=== PATIENT | male | born 1955 | race Caucasian/White ===

== ENCOUNTER 2019-06-22 11:53 | Emergency (ER) | payer MEDICARE, SELFPAY ==
--- NOTE | ~2019-06-22 | CT_ITS ---
EXAMINATION: CT brain wo con EXAM DATE: 06/22/2019 14:36 INDICATION: Fell off ladder today 2 days ago, head injury. TECHNIQUE: Spiral CT of the head was performed without contrast. Axial, coronal and sagittal images were reviewed. The dose-length product (DLP) for this examination was 529.67 mGy-cm. The exposure w as tailored according to patient size, and iterative reconstruction (ASIR) was used as additional dos e reduction technique. There is no prior study for comparison. FINDINGS: There is no acute intraparenchymal hemorrhage. No evidence of intraparenchymal brain mass lesion. No evidence of acute infarction. There is no mass effect or midline shift. The ventricles are normal in size. There are no extra-axial collections. There are no acute calvarial fractures. T he orbits are unremarkable. Soft tissue is unremarkable. The visualized sinuses and mastoid air perla ls are well aerated. IMPRESSION: 1. No acute intracranial findings. Reviewed, dictated and finalized at location A.
--- NOTE | ~2019-06-22 | CT_ITS ---
EXAMINATION: CT cervical spine wo con EXAM DATE: 06/22/2019 14:35 INDICATION: Head injury. TECHNIQUE: Spiral CT of the cervical spine was performed without contrast. Axial images were reviewe d. Coronal and sagittal reformatted images were also reviewed. The dose-length product (DLP) for thi s examination was 609.65 mGy-cm. The exposure was tailored according to patient size (auto mA exposu re control), and iterative reconstruction (ASIR) was used as additional dose reduction technique. Th ere is no prior study for comparison. FINDINGS: Moderate midcervical disc disease and arthropathy. There is no evidence of acute cervical f racture. The odontoid process is intact. Pre-dens space is normal. Prevertebral soft tissue is nor mal. There are no soft tissue abnormalities identified. There is no disc space widening or traumati c vertebral body subluxation suspected. A detailed level by level evaluation of spondylosis can be added as addendum if requested. IMPRESSION: 1. No acute cervical fracture. 2. Moderate cervical spondylosis. Reviewed, dictated and finalized at location B.
--- NOTE | ~2019-06-22 | CT_ITS ---
EXAMINATION: CT pelvis wo con DATE: 06/22/2019 14:35 INDICATION: Pelvis injury. TECHNIQUE: Computed tomography (CT) of the pelvis was performed without intravenous contrast. Automat ed exposure control and iterative reconstruction technique were employed. The dose-length product was 867.30 mGy-cm. COMPARISON: CT pelvis 10/01/2017 FINDINGS: There is a small umbilical hernia containing fat. The prostate is mildly enlarged. There is diverticulosis of the colon without evidence of diverticulitis. There are no dilated loops of bowel. There are no pathologically enlarged lymph nodes. There is no free intraperitoneal fluid. There is a small left inguinal hernia containing fat. Bone alignment is normal. No fracture. There is severe lo wer lumbar spondylosis. There is moderate osteoarthritis of the hips. IMPRESSION: 1. No fracture. 2. Moderate osteoarthritis of the hips. Reviewed, dictated and finalized at location A.
[2019-06-22 13:47] VITALS: BP 138/83; PULSE 71; RESP 16; TEMP 36.5; O2SAT 99
--- NOTE | 2019-06-22 14:05 | ECG_ITS ---
Measurements Intervals [place] Rate: 68 P: 70 MD: 185 QRS: -1 QRSD: 100 T: 42 QT: 376 QTc: 401 Interpretive Statements SINUS RHYTHM NORMAL ECG Electronically Signed On 06-22-2019 14:56:43 CDT by Partha Brown D.O.
--- NOTE | 2019-06-22 14:12 | PC.NURSE ---
report given to on-coming AMANDA soria.
--- NOTE | 2019-06-22 14:12 | ED.FALL ---
HPI - Fall General Chief Complaint: Fall Stated Complaint: fell off ladder 2 days ago Source: patient Mode of arrival: ambulatory Limitations: no limitations History of Present Illness HPI Narrative: This 64-year-old gentleman comes in with hx of 2 separate incidence of falling. He complains of left low back pain /hip pain as well as neck pain Two days ago Bin was on a latter, about 6 ft off the ground. He lost his balance and fell hitting his left lower back and hip region. Since then his pain has been sharp, #7/10 at rest, #10/10 with walking. He has been able to ambulate but his pain has been getting progressively worse. Yesterday Bin was at a store counter. The next thing he knew was waking up on the floor. He had fallen forward hitting the right forehead. He states he felt somewhat foggy headed for about an hours so afterwards which cleared up. He has had no headache. He denied pain in the head or elsewhere following this incident, although this morning he started having pain in his lower neck made worse at endpoints of neck ROM. He denies numbness tingling or weakness in his arms. He has a seizure disorder; has not had his Dilantin level checked in a long time. He loses consciousness but has never fallen. He has been planning on seeing his neurologist this month. His last seizure was about 2 years ago. With those episodes he states he wakes up, has amnesia of the episode but is clear headed with no post-ictal symtoms. He saw Dr. Velez 3 or 4 weeks ago. He was feeling his heart miss a beat. He was told his EKG was of no concern. He does not know what blood tests were done. He has a history of CVA x3 which has left him weak on 1 side; he ambulates with a cane. He has coronary artery disease status post stent placement x2 Related Data Home Medications Medication Instructions Recorded Confirmed amitriptyline 100 mg tablet 100 mg PO ONCE 03/30/19 06/22/19 clopidogrel 75 mg tablet 75 mg PO DAILY 03/30/19 06/22/19 aspirin 81 mg tablet,delayed 81 mg PO DAILY 05/04/19 06/22/19 release escitalopram oxalate 10 mg tablet 10 mg PO DAILY 05/04/19 06/22/19 gabapentin 300 mg capsule 900 mg PO TID cap 05/04/19 06/22/19 isosorbide dinitrate 20 mg tablet 20 mg PO ONCE tablet 05/04/19 06/22/19 lisinopril 20 1 tablet PO BID 05/04/19 06/22/19 mg-hydrochlorothiazide 25 mg tablet metoprolol tartrate 50 mg tablet 50 mg PO Q12H 05/04/19 06/22/19 nitroglycerin 0.4 mg sublingual 0.4 mg SUBLINGUAL Q5M PRN 05/04/19 06/22/19 tablet omeprazole 40 mg capsule,delayed 40 mg PO DAILY 05/04/19 06/22/19 release phenytoin sodium extended 100 mg 300 mg PO HS 05/04/19 06/22/19 capsule rosuvastatin 20 mg tablet 20 mg PO DAILY 05/04/19 06/22/19 Allergies Allergy/AdvReac Type Severity Reaction Status Date / Time acetaminophen [Vicodin] Allergy Intermediate Rash Verified 05/04/19 08:04 baclofen Allergy Intermediate Anaphylaxis Verified 05/04/19 08:04 hydrocodone [Vicodin] Allergy Intermediate Rash Verified 05/04/19 08:04 Review of Systems Constitutional: Constitutional: Reports no additional constitutional complaints, Denies chills and Denies fever(s) Eyes: Eyes: Denies change in vision ENT: Denies epistaxis and Denies sore throat Cardiovascular: Cardiovascular: Denies chest pain Respiratory: Respiratory: Denies dyspnea Comments: no recent palpitations or feelings of an irregular heart beat. Gastrointestinal: Gastrointestinal: Denies abdominal pain, Denies diarrhea and Denies vomiting Genitourinary: Genitourinary: Denies dysuria Musculoskeletal: Musculoskeletal: Reports no additional musculoskeletal complaints and Denies joint swelling Integumentary/Breasts: Comments: abrasions on forehead . Neurologic: Reports system reviewed and no additional complaints, except as documented, Denies vertigo and Denies dizziness Endocrine: Endocrine: Denies polydipsia Hematologic/Lymphatic: Hematologic/Lymphatic: Denies easy bleeding
--- NOTE | 2019-06-22 14:20 | PC.NURSE ---
Report rcvd, care assumed of pt at this time.
[2019-06-22 14:25] LABS: Hematocrit 32.1 % (40.0-54.0); Hemoglobin 11.5 g/dL (14.0-18.0); Mean Corpuscular HGB Conc 35.8 g/dL (32.0-36.0); Mean Corpuscular Hemoglobin 31.3 pg (27.0-31.0); Mean Corpuscular Volume 87.5 fL (78.0-102.0); Mean Platelet Volume 10.4 fl (8.7-11.0); Platelet Count Result 191 K/mm3 (150-420); Red Blood Count 3.67 M/mm3 (4.70-6.10); Red Cell Distribution Width 13.3 % (11.6-14.4); White Blood Count 7.5 K/mm3 (4.8-10.8)
[2019-06-22 14:40] LABS: Alanine Aminotransferase 30 U/L (16-63); Albumin Level 3.8 g/dL (3.4-5.0); Alkaline Phosphatase 195 U/L (46-116); Anion Gap 12.7 mmol/L (7-16); Aspartate Amino Transferase 12 U/L (15-37); Bilirubin,Total 0.2 mg/dL (0.00-1.00); Blood Urea Nitrogen 29 mg/dL (7-18); Calcium 8.7 mg/dL (8.5-10.1); Carbon Dioxide 26 mmol/L (21-32); Chloride 103 mmol/L (98-108); Estimated CRCL calculation 45 ml/min; Estimated Glomerular Filt Rate 39; Glucose 103 mg/dL (70-99); Osmolality Calculated 289 mOsm/kg (285-295); Potassium 4.7 mmol/L (3.5-5.1); Sodium 137 mmol/L (136-145); Total Protein 6.8 g/dL (6.4-8.2)
[2019-06-22 14:41] LABS: Phenytoin Dilantin 7 ug/mL (10-20)
--- NOTE | 2019-06-22 16:00 | PC.NURSE ---
Pt aware of need for urine specimen.
--- NOTE | 2019-06-22 16:07 | PC.NURSE ---
Dr Edmond at bedside talking with pt and .
[2019-06-22 16:14] VITALS: BP 147/73; PULSE 67; RESP 18; O2SAT 97
[2019-06-22 16:44] LABS: Add Urine Microscopic? NO; Appearance Urine Clear (Clear); Bilirubin Urine Negative (Negative); Blood Urine Negative (Negative); Color Urine Yellow (Yellow); Glucose Urine UA Negative (Negative); Ketones Urine Negative (Negative); Leukocyte Esterase Ur Negative (Negative); Nitrate Urine Negative (Negative); Protein Urine Negative (Negative); Specific Grav Ur 1.015 (1.010-1.020); Urobilinogen Urine 0.2 mg/dL (0.2-1.0); pH Urine 5.5 (5.0-8.0)
[2019-06-22 17:05] VITALS: RESP 20
== END 2019-06-22 17:07 | disposition home or self-care (01) ==
PROVIDERS: Emergency Provider Family Medicine; PCP Family Medicine
DX: R55 Syncope and collapse (principal); S00.93XA Contusion of unspecified part of head, initial encounter; S16.1XXA Strain of muscle, fascia and tendon at neck level, initial encounter; S70.02XA Contusion of left hip, initial encounter; N17.9 Acute kidney failure, unspecified; N18.9 Chronic kidney disease, unspecified; I25.10 Atherosclerotic heart disease of native coronary artery without angina pectoris; Z86.73 Personal history of transient ischemic attack (TIA), and cerebral infarction without residual deficits; W19.XXXA Unspecified fall, initial encounter
CPT/HCPCS: 36415; 70450; 72125; 72192; 80053; 80185; 81003; 85027; 93005; 99283; 99284

== ENCOUNTER 2019-06-28 10:47 | Outpatient (CLI) | payer MEDICARE, SELFPAY ==
[2019-06-28 11:07] LABS: Basophils Absolute Auto 0.04 K/mm3 (0.00-0.10); Basophils Percent Auto 0.7 % (0.0-1.0); Eosinophils Absolute Auto 0.42 K/mm3 (0.02-0.50); Eosinophils Percent Auto 7.6 % (1.0-6.0); Hematocrit 33.4 % (40.0-54.0); Hemoglobin 11.3 g/dL (14.0-18.0); Immature Granulocyte Absolute 0.03 K/mm3 (0.00-0.00); Immature Granulocyte Percent A 0.5 % (0.0-0.0); Lymphocytes Absolute Auto 1.35 K/mm3 (1.10-4.50); Lymphocytes Percent Auto 24.5 % (18.0-42.0); Mean Corpuscular HGB Conc 33.8 g/dL (32.0-36.0); Mean Corpuscular Volume 91.8 fL (78.0-102.0); Monocytes Absolute Auto 0.36 K/mm3 (0.10-0.90); Monocytes Percent Auto 6.5 % (2.0-11.0); Neutrophils Absolute Auto 3.3 K/mm3 (1.7-7.2); Neutrophils Percent Auto 60.2 % (50.0-70.0); Platelet Count Result 172 K/mm3 (150-420); Red Blood Count 3.64 M/mm3 (4.70-6.10); Red Cell Distribution Width 13.9 % (11.6-14.4); White Blood Count 5.5 K/mm3 (4.8-10.8)
[2019-06-28 12:24] LABS: BNP 101 pg/mL (0-100)
[2019-06-28 12:30] LABS: Anion Gap 9.7 mmol/L (7-16); Blood Urea Nitrogen 23 mg/dL (7-18); Calcium 9.2 mg/dL (8.5-10.1); Carbon Dioxide 31 mmol/L (21-32); Chloride 106 mmol/L (98-108); Estimated Glomerular Filt Rate 57; Glucose 101 mg/dL (70-99); Iron 94 ug/dL (65-175); Osmolality Calculated 297 mOsm/kg (285-295); Percent Iron Saturation 30 % (12-57); Phenytoin Dilantin 13 ug/mL (10-20); Potassium 4.7 mmol/L (3.5-5.1); Sodium 142 mmol/L (136-145); Thyroid Stimulating Hormone 0.98 uIU/mL (0.36-3.74)
== END 2019-06-28 10:48 | disposition home or self-care (01) ==
LOC: CHSLAB 10:51
PROVIDERS: PCP Family Medicine; Visit Provider Family Medicine
DX: R55 Syncope and collapse (principal); I25.10 Atherosclerotic heart disease of native coronary artery without angina pectoris; D64.9 Anemia, unspecified; G40.909 Epilepsy, unspecified, not intractable, without status epilepticus; F32.9 Major depressive disorder, single episode, unspecified
CPT/HCPCS: 36415; 80048; 80185; 83540; 83550; 83880; 84443; 85025

== ENCOUNTER 2019-11-15 09:40 | Outpatient (CLI) | payer MEDICARE, SELFPAY ==
[2019-11-17 22:27] LABS: H pylori, Urea Breath NOT DETECTED (NOT DETECTED)
== END 2019-11-15 09:41 | disposition home or self-care (01) ==
LOC: CHSLAB 09:42
PROVIDERS: PCP Family Medicine; Visit Provider Family Medicine
DX: K21.9 Gastro-esophageal reflux disease without esophagitis (principal)
CPT/HCPCS: 83013

== ENCOUNTER 2019-11-23 16:28 | Outpatient (CLI) | payer MEDICARE, SELFPAY ==
[2019-11-23 16:42] LABS: Hemoglobin 13.9 g/dL (14.0-18.0); Mean Corpuscular HGB Conc 33.1 g/dL (32.0-36.0); Mean Corpuscular Hemoglobin 29.1 pg (27.0-31.0); Mean Corpuscular Volume 87.9 fL (78.0-102.0); Mean Platelet Volume 10.7 fl (8.7-11.0); Platelet Count Result 245 K/mm3 (150-420); Red Blood Count 4.78 M/mm3 (4.70-6.10); Red Cell Distribution Width 13.3 % (11.6-14.4); White Blood Count 7.8 K/mm3 (4.8-10.8)
[2019-11-23 17:56] LABS: Alanine Aminotransferase 32 U/L (16-63); Albumin Level 3.9 g/dL (3.4-5.0); Alkaline Phosphatase 154 U/L (46-116); Anion Gap 9 mmol/L (8-16); Aspartate Amino Transferase 25 U/L (15-37); Bilirubin,Total 0.3 mg/dL (0.00-1.00); Blood Urea Nitrogen 21 mg/dL (7-18); Calcium 9.5 mg/dL (8.5-10.1); Carbon Dioxide 29 mmol/L (21-32); Chloride 103 mmol/L (98-108); Estimated Glomerular Filt Rate 56; Glucose 92 mg/dL (70-99); Osmolality Calculated 295 mOsm/kg (285-295); Potassium 3.9 mmol/L (3.5-5.1); Prostate Specific Antigen 2.5 ng/mL (< OR = 4.0); Sodium 141 mmol/L (136-145); Total Protein 7.2 g/dL (6.4-8.2)
[2019-11-28 08:55] LABS: TB Skin Test Interpretation Unable to Read (Negative); TB Skin Test Site Left Arm
== END 2019-11-23 16:29 | disposition home or self-care (01) ==
LOC: CHSLAB 16:31
PROVIDERS: PCP Family Medicine; Visit Provider Family Medicine
DX: R63.4 Abnormal weight loss (principal); R25.2 Cramp and spasm; Z12.5 Encounter for screening for malignant neoplasm of prostate
CPT/HCPCS: 36415; 80053; 84153; 85027; 86580; G0103

== ENCOUNTER 2019-12-12 13:59 | Outpatient (CLI) | payer MEDICARE, SELFPAY ==
[2019-12-12] MEDS: SODIUM CHLORIDE 0.9% IV 1,000 ML 500 ML IVPB (15:28)
[2019-12-12] MEDS: PROCHLORPERAZINE EDISYLATE 10 MG/2 ML VIAL IV PUSH (15:28)
[2019-12-12] MEDS: diphenhydrAMINE HCl INJ 50 MG/ML VIAL IV PUSH (15:28)
== END 2019-12-12 14:00 | disposition home or self-care (01) ==
LOC: CHSTREATRM 14:01
PROVIDERS: PCP Family Medicine; Visit Provider Family Medicine
DX: R51 Headache (principal)
CPT/HCPCS: 96360; 96361; J0780; J1200; J7030

== ENCOUNTER 2019-12-13 08:39 | Outpatient (CLI) | payer MEDICARE, SELFPAY ==
--- NOTE | ~2019-12-13 | CT_ITS ---
EXAMINATION: CT lung screening DATE: 12/13/2019 09:02 INDICATION: History of secondhand smoke exposure TECHNIQUE: Computed tomography (CT) of the chest was performed without intravenous contrast. The dose -length product (DLP) was 275.93 mGy-cm. Automated exposure control and iterative reconstruction tech [employer] were employed. COMPARISON: 04/19/2014 FINDINGS: Calcified pulmonary nodules and calcified left hilar lymph nodes are consistent with old gr anulomatous disease. There is a 5 mm nodule of the right middle lobe in association with the major fi ssure on image 61. The lungs are free of focal airspace opacities. There is no pleural effusion or pn eumothorax. No pathologically enlarged thoracic lymph nodes are identified. The heart size is normal. Calcified coronary artery atherosclerosis is noted. There is mild thoracic spondylosis. IMPRESSION: 1. 5 mm nodule of the right middle lobe in association with the major fissure, likely a fissural lymp h node. Consider follow-up CT in 12 months. Lung-RADS category 2: Benign appearance or behavior. Reviewed, dictated and finalized at location A. IMPRESSION: 1. 5 mm nodule of the right middle lobe in association with the major fissure, likely a fissural lymph node. Consider follow-up CT in 12 months. Lung-RADS cat egory 2: Benign appearance or behavior.
--- NOTE | ~2019-12-13 | MR_ITS ---
. EXAMINATION: MR brain/brain stem wo/w con DATE: 12/13/2019 10:07 INDICATION: Headache. TECHNIQUE: Magnetic resonance imaging (MRI) of the brain and brainstem was performed without and with 20 mL MultiHance intravenous contrast. Sequences included sagittal and axial T1-weighted FSE, axial diffusion-weighted FS EPI, axial T2*-weighted GRE, axial T2-weighted FLAIR Propeller, and axial T2-we ighted Propeller. Postcontrast sequences included axial and coronal T1-weighted FSE. Apparent diffusi on coefficient (ADC) maps were created. COMPARISON: Brain MRI 07/18/2015 FINDINGS: There is no intracranial hemorrhage, acute infarction, or abnormal intracranial mass lesion . There are scattered areas of nonspecific increased T2-weighted signal intensity in the cerebral whi te matter, which is within normal limits for the patient's age. The ventricles are normal in size. Th e orbits are normal. The paranasal sinuses are clear. The mastoid air cells are normal. There are mul tiple masses in the scalp measuring up to 11 mm, likely benign. IMPRESSION: 1. Normal aging brain. Reviewed, dictated and finalized at location A. IMPRESSION: 1. Normal aging brain.
== END 2019-12-13 08:40 | disposition home or self-care (01) ==
LOC: CHSIMG 08:41
PROVIDERS: PCP Family Medicine; Visit Provider Family Medicine
DX: R51 Headache (principal); R63.4 Abnormal weight loss; Z12.2 Encounter for screening for malignant neoplasm of respiratory organs; Z87.891 Personal history of nicotine dependence
CPT/HCPCS: 70553; A9577; G0297

== ENCOUNTER 2020-04-17 11:43 | Outpatient (CLI) | payer MEDICARE, SELFPAY ==
[2020-04-17 23:29] LABS: SARS-CoV-2 RNA PCR Negative
== END 2020-04-17 11:44 | disposition home or self-care (01) ==
LOC: CHSLAB 11:45
PROVIDERS: PCP Family Medicine; Visit Provider Family Medicine
DX: J02.9 Acute pharyngitis, unspecified (principal); Z20.822 Contact with and (suspected) exposure to COVID-19
CPT/HCPCS: C9803; U0003

== ENCOUNTER 2020-05-14 12:35 | Outpatient (CLI) | payer MEDICARE, SELFPAY ==
[2020-05-15 19:17] LABS: SARS-CoV-2 RNA PCR Negative
== END 2020-05-14 12:36 | disposition home or self-care (01) ==
PROVIDERS: PCP Family Medicine; Visit Provider Family Medicine
DX: Z20.822 Contact with and (suspected) exposure to COVID-19 (principal)
CPT/HCPCS: C9803; U0003; U0005

== ENCOUNTER 2020-08-21 10:10 | Outpatient (CLI) | payer MEDICARE, SELFPAY ==
[2020-08-21 10:19] LABS: Basophils Absolute Auto 0.05 K/mm3 (0.00-0.10); Basophils Percent Auto 0.6 % (0.0-1.0); Hematocrit 41.5 % (37.0-46.0); Immature Granulocyte Absolute 0.03 K/mm3 (0.00-0.00); Immature Granulocyte Percent A 0.4 % (0.0-0.0); Lymphocytes Absolute Auto 1.91 K/mm3 (1.10-4.50); Lymphocytes Percent Auto 23.9 % (18.0-42.0); Mean Corpuscular HGB Conc 33.7 g/dL (32.0-36.0); Mean Corpuscular Hemoglobin 29.4 pg (27.0-31.0); Mean Corpuscular Volume 87.2 fL (78.0-102.0); Mean Platelet Volume 9.6 fl (8.7-11.0); Monocytes Absolute Auto 0.47 K/mm3 (0.10-0.90); Monocytes Percent Auto 5.9 % (2.0-11.0); Neutrophils Absolute Auto 5.1 K/mm3 (1.7-7.2); Neutrophils Percent Auto 64.2 % (50.0-70.0); Platelet Count Result 258 K/mm3 (150-420); Red Blood Count 4.76 M/mm3 (4.70-6.10); Red Cell Distribution Width 13.9 % (11.6-14.4)
[2020-08-21 11:19] LABS: Alanine Aminotransferase 32 U/L (16-63); Albumin Level 3.7 g/dL (3.4-5.0); Alkaline Phosphatase 163 U/L (46-116); Anion Gap 9 mmol/L (8-16); Aspartate Amino Transferase 17 U/L (15-37); Bilirubin,Total 0.3 mg/dL (0.00-1.00); Blood Urea Nitrogen 15 mg/dL (7-18); Calcium 9.3 mg/dL (8.5-10.1); Carbon Dioxide 29 mmol/L (21-32); Chloride 101 mmol/L (98-108); Cholesterol 295 mg/dL (0-200); Estimated Glomerular Filt Rate 54; Glucose 183 mg/dL (70-99); HDL Direct 33 mg/dL (40-60); LDL Cholesterol Calculated 191 mg/dL (<130); NT Pro B Type Natriuretic Pept 55 pg/mL (0-125); Osmolality Calculated 293 mOsm/kg (285-295); Potassium 4.3 mmol/L (3.5-5.1); Sodium 139 mmol/L (136-145); Total Protein 7.3 g/dL (6.4-8.2); Triglycerides 356 mg/dL (0-150)
== END 2020-08-21 10:11 | disposition home or self-care (01) ==
LOC: CHSLAB 10:11
PROVIDERS: PCP Family Medicine; Visit Provider Nurse Practitioner Family
DX: E78.00 Pure hypercholesterolemia, unspecified (principal); I25.10 Atherosclerotic heart disease of native coronary artery without angina pectoris; I10 Essential (primary) hypertension; R06.00 Dyspnea, unspecified
CPT/HCPCS: 36415; 80053; 80061; 83880; 85025

== ENCOUNTER 2020-09-18 13:22 | Outpatient (CLI) | payer MEDICARE, SELFPAY ==
--- NOTE | ~2020-09-18 | XR_ITS ---
EXAMINATION: XR chest 2V 09/18/2020 13:45 INDICATION: Shortness of breath and dyspnea PROCEDURE: 2 view chest COMPARISON: Comparison to multiple prior studies sequentially, with oldest reviewed study dated 08/01. FINDINGS: The lungs are clear. The cardiomediastinal silhouette is within normal limits. There are no pleural effusions. There is no pneumothorax suspected. There are a few calcified granulomas. Mil d thoracic spondylosis. IMPRESSION: 1: NO ACUTE CARDIOPULMONARY DISEASE. Reviewed, dictated and finalized at location B.
--- NOTE | 2020-09-18 13:34 | ECG_ITS ---
Measurements Intervals [place] Rate: 78 P: 66 NE: 178 QRS: 18 QRSD: 103 T: 46 QT: 378 QTc: 431 Interpretive Statements SINUS RHYTHM BASELINE ARTIFACT- I, II, III, AVR, AVL, AVF, V1, V4-V6 NORMAL ECG Electronically Signed On 09-18-2020 19:15:13 CDT by Partha Brown D.O.
[2020-09-18 14:00] LABS: NT Pro B Type Natriuretic Pept 25 pg/mL (0-125); Troponin I 5.8 ng/L (0.00-60.4)
== END 2020-09-18 13:23 | disposition home or self-care (01) ==
PROVIDERS: PCP Family Medicine; Visit Provider Nurse Practitioner Family
DX: R06.02 Shortness of breath (principal); Z01.818 Encounter for other preprocedural examination
CPT/HCPCS: 36415; 71046; 83880; 84484; 93005

== ENCOUNTER 2020-09-19 11:17 | Outpatient (CLI) | payer MEDICARE, SELFPAY ==
--- NOTE | ~2020-09-19 | CT_ITS ---
EXAMINATION: CTA chest PE protocol EXAM DATE: 09/19/2020 12:31 INDICATION: R06.02 - Shortness of breath, dyspnea, L anterior chest pain. TECHNIQUE: Spiral CTA of the chest (pulmonary arteries) was performed with 100 cc Omnipaque 350 intr avenous contrast injection. Images were acquired during the pulmonary arterial phase. Coronal maxi mum intensity projection 3D-reconstructions were created by the technologist on dedicated workstation . Axial, coronal and sagittal reformatted images were reviewed. The dose-length product (DLP) for t his examination was 930.48 mGy-cm. The exposure was tailored according to patient size (auto mA exp osure control), and iterative reconstruction (ASIR) was used as additional dose reduction technique. Comparison is made to prior examination from 12/13/2019. FINDINGS: Suboptimal pulmonary arterial opacification but no no central pulmonary emboli. No definit e segmental pulmonary emboli. No thoracic aortic dissection. There is 5 mm nodule along the right m ajor fissure unchanged, noncalcified granuloma or fissural node. Several calcified lung granulomata. There are no pleural or pericardial effusions. Tracheobronchial tree is patent. There is no medi astinal, hilar or axillary lymphadenopathy. There is no pneumothorax. Heart normal in size. Pat ient may have left anterior descending coronary artery stent, versus arterial sclerosis if no such hi story. Adrenal gland hyperplasia. There is thoracic spondylosis without osteoblastic or osteolytic lesions identified. Moderate sized thoracic bridging endplate osteophytes. IMPRESSION: 1. Suboptimal pulmonary arterial opacification but no pulmonary emboli suspected. No acute findings. 2. Granulomata. Reviewed, dictated and finalized at location A. IMPRESSION: 1. Suboptimal pulmonary arterial opacification but no pulmonary emboli suspect ed. No acute findings. 2. Granulomata.
== END 2020-09-19 11:18 | disposition home or self-care (01) ==
LOC: CHSIMG 11:18
PROVIDERS: PCP Family Medicine; Visit Provider Nurse Practitioner Family
DX: R06.02 Shortness of breath (principal)
CPT/HCPCS: 71275; Q9967

== ENCOUNTER 2020-10-09 12:02 | Outpatient (CLI) | payer MEDICARE, SELFPAY ==
[2020-10-09 12:53] LABS: Alanine Aminotransferase 33 U/L (16-63); Albumin Level 3.9 g/dL (3.4-5.0); Alkaline Phosphatase 175 U/L (46-116); Anion Gap 13 mmol/L (8-16); Aspartate Amino Transferase 19 U/L (15-37); Bilirubin,Total 0.3 mg/dL (0.00-1.00); Blood Urea Nitrogen 17 mg/dL (7-18); Calcium 8.7 mg/dL (8.5-10.1); Carbon Dioxide 27 mmol/L (21-32); Chloride 102 mmol/L (98-108); Cholesterol 184 mg/dL (0-200); Estimated Glomerular Filt Rate 53; Glucose 208 mg/dL (70-99); HDL Direct 35 mg/dL (40-60); LDL Cholesterol Calculated 97 mg/dL (<130); Osmolality Calculated 301 mOsm/kg (285-295); Potassium 3.5 mmol/L (3.5-5.1); Sodium 142 mmol/L (136-145); Triglycerides 258 mg/dL (0-150)
== END 2020-10-09 12:03 | disposition home or self-care (01) ==
LOC: CHSLAB 12:07
PROVIDERS: PCP Family Medicine; Visit Provider Internal Medicine Cardiovascular Disease
DX: E78.00 Pure hypercholesterolemia, unspecified (principal)
CPT/HCPCS: 36415; 80053; 80061

== ENCOUNTER 2020-10-16 08:42 | Outpatient (CLI) | payer MEDICARE, SELFPAY ==
[2020-10-16 09:02] LABS: Hemoglobin A1C 6.7 % (<5.7)
== END 2020-10-16 08:43 | disposition home or self-care (01) ==
LOC: CHSLAB 08:44
PROVIDERS: PCP Family Medicine; Visit Provider Family Medicine
DX: E11.9 Type 2 diabetes mellitus without complications (principal)
CPT/HCPCS: 36415; 83036

== ENCOUNTER 2020-10-18 12:10 | Outpatient (CLI) | payer MEDICARE, SELFPAY ==
--- NOTE | 2020-10-18 14:18 | WPDPFTINT ---
PFT Procedure Performed PFT Procedure Performed Spirometry with Pre/Post Bronchodilator Plethysmography (Lung Vol) Diffusing Cap (DLCO) Flow Vol Loop PFT Interpretation DOS: 10/18/2020 REQUESTING: Dr Durand REASON FOR TESTING: shortness of breath PULMONARY FUNCTION TESTS Results are reliable and reproducible. Spirometry: FEV1 is 107% predicted, 2.79 L, normal. FVC 116%. FEV1/FVC ratio is 89%. There is no change after bronchodilator administration. Lung volumes: Total lung capacity 116%, upper limit of normal. residual volume 111%, normal. RV/TLC in the normal range. Airway resistance is normal. Diffusion: DLCO 77% normal. Flow volume loop: Normal IMPRESSION: This pulmonary function study shows normal spirometry, lung volumes and diffusion capacity. There is no response to bronchodilator. Luiza Yarbrough MD
== END 2020-10-18 12:11 | disposition home or self-care (01) ==
LOC: CHSCARD 12:12
PROVIDERS: PCP Family Medicine; Visit Provider Family Medicine
DX: R06.02 Shortness of breath (principal)
CPT/HCPCS: 94060; 94726; 94729

== ENCOUNTER 2020-10-19 07:34 | Outpatient (CLI) | payer MEDICARE, SELFPAY ==
--- NOTE | 2020-10-19 07:49 | ECHO_ITS ---
Patient Info Name: Bin Hallwood Age: 65 years : 1955 Gender: Male Ht: 67 in Wt: 267 lbs BSA: 2.45 m2 HR: 72 bpm BP: 104 / 84 mmHg Technical Quality: Fair Exam Date: 10/19/2020 8:15 AM Exam Location: [facility] Pulmonary Patient Status: Outpatient Admit Date: 10/19/2020 Staff Ordering Physician: Partha Brown DO Epic Manager: Josi Encarnacion RDCS Attending Provider: Partha Brown DO Referring Physician: Kevin MEYER; Exam Type: CA echo doppler color flow Study Info Indications R06.00 - Dyspnea, unspecified Complete two-dimensional, color flow and Doppler transthoracic echocardiogram is performed. Summary 1. Complete two-dimensional, color flow and Doppler transthoracic echocardiogram is performed. 2. Left ventricular chamber dimension is normal. 3. Left ventricular systolic function is normal, estimated at 55-60%. 4. The left ventricular diastolic function is grade I diastolic dysfunction. 5. E/e' 10 is mildly elevated. 6. Global longitudinal strain is abnormal at -10.8%. 7. There is mild aortic valve sclerosis. 8. There is trace tricuspid valve regurgitation. 9. There is trivial pericardial effusion. Left Ventricle E/e' 10 is mildly elevated. Global longitudinal strain is abnormal at -10.8%. Left ventricular chamber dimension is normal. Left ventricular systolic function is normal, estimated at 55-60%. The left ventricular diastolic function is grade I diastolic dysfunction. Right Ventricle Right ventricular chamber dimension is normal. Right ventricular systolic function is normal. Left Atria Left atrial chamber dimension is normal. Right Atria Right atrial chamber dimension is normal. Aortic Valve The aortic valve is trileaflet. There is mild aortic valve sclerosis. There is no aortic valve stenosis. There is no aortic valve regurgitation. Pulmonic Valve There is no pulmonic regurgitation. Mitral Valve There is no mitral valve stenosis. There is no mitral valve regurgitation. Tricuspid Valve There is trace tricuspid valve regurgitation. RVSP is not calculated due to an inadequate TR jet. Pericardium/Pleural There is trivial pericardial effusion. Inferior Vena Cava Normal inferior vena cava with >50% collapse upon inspiration consistent with normal right atrial pressure, 5 mmHg. Aorta The aortic root size at the sinus of Valsalva is normal. Left Ventricular Outflow Tract Name Value Normal LVOT 2D LVOT Diameter 2.0 cm LVOT Doppler LVOT Peak Gradient 4 mmHg LVOT Mean Gradient 2 mmHg LVOT VTI 17 cm LVOT VTI/AV VTI Ratio 0.6 LVOT Stroke Volume 54 ml LVOT CO 3.9 l/min LVOT CI 1.6 l/min/m2 Pulmonic Valve Name Value Normal RVOT Doppler
== END 2020-10-19 07:35 | disposition home or self-care (01) ==
PROVIDERS: PCP Family Medicine; Visit Provider Internal Medicine Cardiovascular Disease
DX: R06.00 Dyspnea, unspecified (principal); I35.8 Other nonrheumatic aortic valve disorders
CPT/HCPCS: 93306

== ENCOUNTER 2021-06-18 08:42 | Outpatient (CLI) | payer MEDICARE, SELFPAY ==
[2021-06-18 09:34] LABS: Alanine Aminotransferase 29 U/L (16-63); Albumin Level 3.8 g/dL (3.4-5.0); Alkaline Phosphatase 123 U/L (46-116); Anion Gap 12 mmol/L (8-16); Aspartate Amino Transferase 18 U/L (15-37); Bilirubin,Total 0.5 mg/dL (0.00-1.00); Blood Urea Nitrogen 12 mg/dL (7-18); Carbon Dioxide 27 mmol/L (21-32); Chloride 107 mmol/L (98-108); Cholesterol 132 mg/dL (0-200); Estimated Glomerular Filt Rate 51; Glucose 96 mg/dL (70-99); HDL Direct 32 mg/dL (40-60); LDL Cholesterol Calculated 74 mg/dL (<130); Osmolality Calculated 301 mOsm/kg (285-295); Potassium 3.5 mmol/L (3.5-5.1); Sodium 146 mmol/L (136-145); Total Protein 6.3 g/dL (6.4-8.2); Triglycerides 129 mg/dL (0-150)
== END 2021-06-18 08:43 | disposition home or self-care (01) ==
LOC: CHSLAB 08:43
PROVIDERS: PCP Family Medicine; Visit Provider Internal Medicine Cardiovascular Disease
DX: E78.00 Pure hypercholesterolemia, unspecified (principal)
CPT/HCPCS: 36415; 80053; 80061

== ENCOUNTER 2021-09-04 10:33 | Emergency (ER) | payer MEDICARE, SELFPAY ==
--- NOTE | ~2021-09-04 | XR_ITS ---
EXAMINATION: XR chest 1V portable 09/04/2021 11:44 INDICATION: Dizziness. PROCEDURE: AP portable chest COMPARISON: Comparison to multiple prior studies sequentially, with oldest reviewed study dated 04/27. FINDINGS: The lungs are clear. The cardiomediastinal silhouette is within normal limits. There are no pleural effusions. There is no pneumothorax suspected. IMPRESSION: 1: NO ACUTE CARDIOPULMONARY DISEASE. Reviewed, dictated and finalized at location A.
--- NOTE | ~2021-09-04 | CT_ITS ---
EXAMINATION: CT brain wo con DATE: 09/04/2021 11:44 INDICATION: Dizziness. TECHNIQUE: Computed tomography (CT) of the head was performed without intravenous contrast. The mA wa s adjusted according to patient size. Iterative reconstruction technique was employed. The dose-lengt h product was 529.67 mGy-cm. COMPARISON: Head CT 06/22/2019 FINDINGS: There is no intracranial hemorrhage, acute infarction, or abnormal intracranial mass lesion . The ventricles are normal in size. The orbits are normal. There is mucosal thickening in the parana flako sinuses. The mastoid air cells are normal. IMPRESSION: 1. Normal brain. Reviewed, dictated and finalized at location A. IMPRESSION: 1. Normal brain.
[2021-09-04 10:50] VITALS: BP 115/69; PULSE 60; RESP 16; TEMP 36.3; O2SAT 98
--- NOTE | 2021-09-04 10:54 | ECG_ITS ---
Measurements Intervals [place] Rate: 53 P: 53 VT: 184 QRS: -13 QRSD: 98 T: 37 QT: 441 QTc: 417 Interpretive Statements SINUS BRADYCARDIA INCOMPLETE RIGHT BUNDLE BRANCH BLOCK BORDERLINE ECG Electronically Signed On 09-04-2021 12:22:12 CDT by Partha Brown D.O.
[2021-09-04 11:15] VITALS: BP 100/59; BP 105/59; PULSE 64; PULSE 68; RESP 16; O2SAT 98; O2SAT 99
[2021-09-04] MEDS: SODIUM CHLORIDE 0.9% IV 1,000 ML 999 ML IV CONT (11:15)
[2021-09-04 11:28] LABS: Basophils Absolute Auto 0.05 K/mm3 (0.00-0.10); Basophils Percent Auto 0.7 % (0.0-1.0); Eosinophils Absolute Auto 0.38 K/mm3 (0.02-0.50); Hematocrit 33.1 % (37.0-46.0); Hemoglobin 11.5 g/dL (12.4-15.3); Immature Granulocyte Absolute 0.01 K/mm3 (0.00-0.00); Immature Granulocyte Percent A 0.1 % (0.0-0.0); Lymphocytes Absolute Auto 2.31 K/mm3 (1.10-4.50); Lymphocytes Percent Auto 30.2 % (18.0-42.0); Mean Corpuscular HGB Conc 34.7 g/dL (32.0-36.0); Mean Corpuscular Hemoglobin 29.2 pg (27.0-31.0); Mean Platelet Volume 10.5 fl (8.7-11.0); Monocytes Absolute Auto 0.69 K/mm3 (0.10-0.90); Neutrophils Absolute Auto 4.2 K/mm3 (1.7-7.2); Platelet Count Result 219 K/mm3 (150-420); Red Blood Count 3.94 M/mm3 (4.70-6.10); Red Cell Distribution Width 13.3 % (11.6-14.4); White Blood Count 7.6 K/mm3 (4.8-10.8)
[2021-09-04 11:45] VITALS: BP 107/62; PULSE 71; RESP 16; O2SAT 99
[2021-09-04 11:51] LABS: Lactic Acid Reflex 0.4 mmol/L (0.4-2.0)
[2021-09-04 12:00] LABS: Alanine Aminotransferase 26 U/L (16-63); Albumin Level 4.1 g/dL (3.4-5.0); Alkaline Phosphatase 122 U/L (46-116); Anion Gap 9 mmol/L (8-16); Aspartate Amino Transferase 16 U/L (15-37); Bilirubin,Total 0.8 mg/dL (0.00-1.00); Blood Urea Nitrogen 49 mg/dL (7-18); Calcium 9.4 mg/dL (8.5-10.1); Carbon Dioxide 29 mmol/L (21-32); Chloride 97 mmol/L (98-108); Estimated CRCL calculation 20 ml/min; Estimated Glomerular Filt Rate 16; Glucose 106 mg/dL (70-99); Osmolality Calculated 293 mOsm/kg (285-295); Potassium 3.4 mmol/L (3.5-5.1); Sodium 135 mmol/L (136-145); Total Protein 7.2 g/dL (6.4-8.2); Troponin I 9.5 ng/L (0.00-60.4)
[2021-09-04 12:01] LABS: Ethanol < 3 mg/dL (0-6)
[2021-09-04 12:15] VITALS: BP 111/64; PULSE 60; RESP 16; O2SAT 97
[2021-09-04 12:23] LABS: Add Urine Microscopic? NO; Appearance Urine Clear (Clear); Bilirubin Urine Negative (Negative); Blood Urine Negative (Negative); Color Urine Light Yellow (Yellow); Glucose Urine UA Negative (Negative); Ketones Urine Negative (Negative); Leukocyte Esterase Ur Negative (Negative); Nitrate Urine Negative (Negative); Protein Urine Negative (Negative); Specific Grav Ur 1.015 (1.010-1.020); Urobilinogen Urine 0.2 mg/dL (0.2-1.0)
[2021-09-04 12:30] LABS: Amphetamine Screen Urine Negative (Negative); Barbiturate Screen Urine Negative (Negative); Benzodiazepines Screen Urine Negative (Negative); Cannabinoid Screen Urine Negative (Negative); Cocaine Screen Urine Negative (Negative); Methadone Screen Urine Negative (Negative); Opiate Screen Urine Negative (Negative); Phencyclidine Screen Urine Negative (Negative)
--- NOTE | 2021-09-04 12:39 | ED.DIZZY ---
HPI - Dizziness General Chief Complaint: Dizziness Stated Complaint: lightheadedness, low BP Time Seen by Provider: 09/04/21 10:37 Source: patient, RN notes reviewed and old records reviewed Mode of arrival: wheelchair Limitations: no limitations History of Present Illness MD elicited complaint: dizziness and lightheadedness Onset (ago): day(s) (1) Timing: gradual onset Severity: moderate Description: lightheadedness, off-balance and difficulty walking History of similar symptoms: No Exacerbating factors: nothing Relieving factors: remaining still Associated symptoms: nausea, malaise, weakness and palpatations Associated neuro symptoms: limb weakness Related Data Home Medications Medication Instructions Recorded Confirmed aspirin 81 mg tablet,delayed 81 mg PO DAILY 05/04/19 06/17/21 release Allergies Allergy/AdvReac Type Severity Reaction Status Date / Time baclofen Allergy Intermediate Anaphylaxis Verified 09/11/21 07:34 semaglutide [From Ozempic] AdvReac Severe Nausea Verified 09/11/21 07:34 Review of Systems Review of Systems: All systems reviewed & are unremarkable except as noted in HPI and below Constitutional: Constitutional: Reports no additional constitutional complaints Eyes: Eyes: Reports no additional eye complaints ENT: Reports system reviewed and no additional complaints, except as documented Cardiovascular: Cardiovascular: Reports no additional cardiovascular complaints Respiratory: Respiratory: Reports no additional respiratory complaints Gastrointestinal: Gastrointestinal: Reports no additional gastrointestinal complaints Musculoskeletal: Musculoskeletal: Reports no additional musculoskeletal complaints Integumentary/Breasts: Skin/Breast: Reports system reviewed and no additional complaints, except as docu Neurologic: Reports system reviewed and no additional complaints, except as documented Psychiatric: Psychiatric: Reports no additional psychiatric complaints Endocrine: Endocrine: Reports no additional endocrine complaints Hematologic/Lymphatic: Hematologic/Lymphatic: Reports no additional hematologic/lymphatic complaints Allergic/Immunologic: Allergic/Immunologic: Reports no additional allergic/immunologic complaints [facility] Past Medical History Medical History CAD (coronary artery disease) Chronic kidney disease (CKD) CVA (cerebral vascular accident) x'2, last in 2017. Stent x's 2 placed Depression Dizziness and giddiness DM2 (diabetes mellitus, type 2) [place] (dyspnea on exertion) Dysequilibrium Effects of heat cramp Hypercholesterolemia Hypertension Idiopathic polyneuropathy Obesity (BMI 30-39.9) Surgical absence of teeth Syncope and collapse Surgical History Surgical History History of tonsillectomy Family History Family History Father Hypertension Family history of arthritis Family history of malignant neoplasm Other Family history of coronary artery disease Social History Social History Smoking status: Former smoker Alcohol intake: former Alcohol use details: 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
[2021-09-04 12:51] VITALS: BP 105/58; PULSE 66; RESP 18; TEMP 36.9; O2SAT 97
== END 2021-09-04 12:54 | disposition home or self-care (01) ==
PROVIDERS: Emergency Provider Emergency Medicine; PCP Family Medicine
DX: R42 Dizziness and giddiness (principal); T67.2XXA Heat cramp, initial encounter; I25.10 Atherosclerotic heart disease of native coronary artery without angina pectoris; N18.9 Chronic kidney disease, unspecified; E11.9 Type 2 diabetes mellitus without complications; I10 Essential (primary) hypertension; E78.00 Pure hypercholesterolemia, unspecified; Z87.891 Personal history of nicotine dependence; F32.A Depression, unspecified; G60.9 Hereditary and idiopathic neuropathy, unspecified
CPT/HCPCS: 36415; 70450; 71045; 80053; 80307; 81003; 83605; 84484; 85025; 93005; 96360; 99284; J7030

== ENCOUNTER 2021-09-14 10:38 | Outpatient (CLI) | payer MEDICARE, SELFPAY ==
--- NOTE | ~2021-09-14 | MR_ITS ---
EXAMINATION: MR brain/brain stem wo con DATE: 09/14/2021 11:56 INDICATION: Dizziness. Giddiness. Vertigo. TECHNIQUE: Magnetic resonance imaging (MRI) of the brain and brainstem was performed without intraven ous contrast. COMPARISON: Brain MRI 12/13/2019, head CT 09/04/2021 FINDINGS: There are scattered areas of nonspecific increased T2-weighted signal intensity in the cere bral white matter, which is within normal limits for the patient's age. There is no intracranial hemo rrhage, acute infarction, or abnormal intracranial mass lesion. The ventricles are normal in size. Th e mastoid air cells are normal. There is mild mucosal thickening in the paranasal sinuses. The orbits are normal. IMPRESSION: 1. Normal aging brain. Reviewed, dictated and finalized at location A. IMPRESSION: 1. Normal aging brain.
== END 2021-09-14 10:39 | disposition home or self-care (01) ==
LOC: CHSIMG 10:40
PROVIDERS: PCP Family Medicine; Visit Provider Family Medicine
DX: R42 Dizziness and giddiness (principal)
CPT/HCPCS: 70551

== ENCOUNTER 2021-11-22 11:52 | Emergency (ER) | payer MEDICARE, SELFPAY ==
--- NOTE | ~2021-11-22 | XR_ITS ---
EXAMINATION: XR ankle LT 2V DATE: 11/22/2021 12:36 INDICATION: Left ankle injury and pain. TECHNIQUE: 2 views of left ankle were obtained. COMPARISON: None. FINDINGS: Bone alignment is normal. No fracture. There is mild midfoot osteoarthritis. There are enth esophytes at the posterior and plantar aspects of calcaneal tuberosity. Ankle soft tissue swelling is noted. IMPRESSION: 1. No fracture. Reviewed, dictated and finalized at location A. IMPRESSION: 1. No fracture.
[2021-11-22 12:00] VITALS: BP 124/65; PULSE 99; RESP 18; TEMP 36.3; O2SAT 99
--- NOTE | 2021-11-22 12:14 | ED.LOWEXIN ---
HPI - Extremity Injury (Lower) General Chief Complaint: Extremity Injury, Lower Stated Complaint: LEFT ANKLE PAIN Time Seen by Provider: 11/22/21 12:10 Source: patient, family and RN notes reviewed Mode of arrival: ambulatory Limitations: no limitations History of Present Illness complaint: ankle injury Onset (ago): day(s) (5) Type of Injury: inversion Place: street/outdoors Severity: moderate Relieving factors: rest Exacerbating factors: weight bearing and movement Context: walking Associated symptoms: able to partially bear weight Other symptoms: none Related Data Allergies Allergy/AdvReac Type Severity Reaction Status Date / Time baclofen Allergy Intermediate Anaphylaxis Verified 11/22/21 12:08 semaglutide [From Ozempic] AdvReac Severe Nausea Verified 11/22/21 12:08 Review of Systems Review of Systems: All systems reviewed & are unremarkable except as noted in HPI and below PMFSH Past Medical History Medical History CAD (coronary artery disease) Chronic kidney disease (CKD) CVA (cerebral vascular accident) x'2, last in 2016. Stent x's 2 placed Depression Dizziness and giddiness DM2 (diabetes mellitus, type 2) COELHO (dyspnea on exertion) Dysequilibrium Effects of heat cramp Hypercholesterolemia Hypertension Idiopathic polyneuropathy Obesity (BMI 30-39.9) Surgical absence of teeth Syncope and collapse Surgical History Surgical History History of tonsillectomy Family History Family History Father Hypertension Family history of arthritis Family history of malignant neoplasm Other Family history of coronary artery disease Social History Social History Smoking status: Former smoker Alcohol intake: former Alcohol use details: 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 Gender identity (if verbalized by the patient): Male Spiritual care concerns: No Exam Const: General: healthy appearing, no acute distress and alert Nutritional Appearance: well nourished Orientation/consciousness: patient oriented x3 Limitations: no limitations HENMT: Head: normal to inspection Ears: external ears normal Eyes: Conjunctivae: conjunctivae normal Pupils: Equal, round and reactive pupils present EOM: EOMs intact bilaterally Neck: Neck: normal visual inspection Resp: Effort & Inspection: normal respiratory effort Auscultation: clear to auscultation bilaterally Cardio: Rate: regular rate Rhythm: regular rhythm GI: GI Palp: Yes Soft to palpation and No Tenderness to palpation present (GI) Auscultation: normal bowel sounds Back/Spine/Pelvis: Cervical Spine: cervical ROM normal Thoracic/Lumbar Spine: thoraco-lumbar ROM normal Skin: General skin exam: normal color Rashes: no rashes Neuro: General: patient oriented x3, moves all extremities, no focal motor deficits and CN's II-XI intact bilaterally Speech: normal speech Other: Limping gait Extrem: General: normal exam except as noted Left lower extremity: ankle Details: abnormal to inspection, tenderness Location: of the anterior talofibular ligament, swelling Details: laterally and abnormal ROM Details: pain with active ROM Details: with inversion and pain with passive ROM Details: with inversion Psych: Mental Status: mental status grossly normal Affect: normal affect Attitude: cooperative Procedures Orthopedic Splinting/Casting Injury #1: Splinting/Casting Date: 11/22/21 Side: left Lower Extremity Injury Location: ankle Splint: prefabricated Pre-Formed: airgel ankle stirrup Pre-Procedure Neuro Vascular Exam: normal Post-Procedure Neuro Vascular Exam: normal Discharge Plan Discharge
== END 2021-11-22 12:55 | disposition home or self-care (01) ==
PROVIDERS: Emergency Provider Emergency Medicine; PCP Family Medicine
DX: S93.492A Sprain of other ligament of left ankle, initial encounter (principal); I25.10 Atherosclerotic heart disease of native coronary artery without angina pectoris; N18.9 Chronic kidney disease, unspecified; E11.9 Type 2 diabetes mellitus without complications; I10 Essential (primary) hypertension; E78.00 Pure hypercholesterolemia, unspecified; Z87.891 Personal history of nicotine dependence
CPT/HCPCS: 29515; 73600; 99283; L4350

== ENCOUNTER 2021-12-12 08:57 | Outpatient (CLI) | payer MEDICARE, SELFPAY ==
--- NOTE | ~2021-12-12 | XR_ITS ---
EXAMINATION: XR foot LT 2V DATE: 12/12/2021 09:48 INDICATION: Left foot pain. TECHNIQUE: 2 views of left foot were obtained. COMPARISON: Left foot radiograph 09/28/2016 FINDINGS: Bone alignment is normal. No fracture. There is mild osteoarthritis of first metatarsophala ngeal joint and some of the interphalangeal joints. There are enthesophytes at the posterior and plan tar aspects of calcaneal tuberosity. IMPRESSION: 1. Mild polyarticular osteoarthritis. Reviewed, dictated and finalized at location A.
--- NOTE | ~2021-12-12 | XR_ITS ---
EXAMINATION: XR foot RT 2V DATE: 12/12/2021 09:48 INDICATION: Right foot arch pain. TECHNIQUE: 2 views of right foot were obtained. COMPARISON: Right ankle radiographs 10/27/2016 FINDINGS: Bone alignment is normal. No fracture. There is mild osteoarthritis of first metatarsophala ngeal joint and some of the interphalangeal joints. There are enthesophytes at the posterior and plan tar aspects of calcaneal tuberosity. IMPRESSION: 1. Mild polyarticular osteoarthritis. Reviewed, dictated and finalized at location A.
[2021-12-12 09:31] LABS: Hemoglobin A1C 5.5 % (<5.7)
[2021-12-12 09:37] LABS: Alanine Aminotransferase 18 U/L (16-63); Albumin Level 3.9 g/dL (3.4-5.0); Alkaline Phosphatase 104 U/L (46-116); Anion Gap 11 mmol/L (8-16); Aspartate Amino Transferase 15 U/L (15-37); Bilirubin,Total 0.5 mg/dL (0.00-1.00); Blood Urea Nitrogen 21 mg/dL (7-18); Calcium 9.2 mg/dL (8.5-10.1); Carbon Dioxide 24 mmol/L (21-32); Chloride 104 mmol/L (98-108); Cholesterol 142 mg/dL (0-200); Estimated Glomerular Filt Rate 48; Glucose 96 mg/dL (70-99); HDL Direct 33 mg/dL (40-60); LDL Cholesterol Calculated 82 mg/dL (<130); Osmolality Calculated 291 mOsm/kg (285-295); Potassium 3.8 mmol/L (3.5-5.1); Sodium 139 mmol/L (136-145); Total Protein 6.9 g/dL (6.4-8.2); Triglycerides 136 mg/dL (0-150)
== END 2021-12-12 08:58 | disposition home or self-care (01) ==
LOC: CHSLAB 08:58
PROVIDERS: PCP Family Medicine; Visit Provider Family Medicine
DX: M79.671 Pain in right foot (principal); M79.672 Pain in left foot; E66.9 Obesity, unspecified; E11.9 Type 2 diabetes mellitus without complications
CPT/HCPCS: 36415; 73620; 80053; 80061; 83036

== ENCOUNTER 2022-02-21 08:37 | Outpatient (CLI) | payer MEDICARE, SELFPAY | END 2022-02-21 08:38 | disposition home or self-care (01) | LOC: CHSLAB 08:39 | PROVIDERS: PCP Family Medicine; Visit Provider Family Medicine | DX: M79.671 Pain in right foot (principal); M79.672 Pain in left foot | CPT/HCPCS: 36415; 84550 ==

== ENCOUNTER 2022-10-30 14:16 | Outpatient (CLI) | payer MEDICARE, SELFPAY ==
--- NOTE | ~2022-10-30 | XR_ITS ---
EXAM: XR hip RT 2V w AP pelvis DATE: 10/30/2022 14:31 HISTORY: M25.551 - Pain in right hip x3 years; worsening . COMPARISON: 01/18/2014. FINDINGS: Normal mineralization. No fracture or dislocation. No lytic or blastic lesion. Moderate bi lateral superior hip joint space narrowing. Mild bilateral hip osteophytosis. Scattered hip and pelvi c enthesopathy. Small bilateral foci of heterotopic bone formation overlying the gluteus medius tendo ns. No erosion or periosteal change. Soft tissues within normal limits. IMPRESSION: Mild-moderate bilateral hip osteoarthritis. Reviewed, dictated and finalized at location K.
== END 2022-10-30 14:17 | disposition home or self-care (01) ==
LOC: CHSIMG 14:20
PROVIDERS: PCP Family Medicine; Visit Provider Family Medicine
DX: M25.551 Pain in right hip (principal); M16.0 Bilateral primary osteoarthritis of hip
CPT/HCPCS: 73502

== ENCOUNTER 2022-12-04 13:54 | Outpatient (NON) | payer MEDICARE, SELFPAY | END 2022-12-04 13:55 | disposition home or self-care (01) | LOC: CHSLAB 13:56 | PROVIDERS: Visit Provider Nurse Practitioner Family | DX: L02.414 Cutaneous abscess of left upper limb (principal) | CPT/HCPCS: 87070; 87147; 87186; 87205 ==

== ENCOUNTER 2023-05-14 11:44 | Outpatient (CLI) | payer OTHER, SELFPAY ==
--- NOTE | ~2023-05-14 | XR_ITS ---
Clinical Indication: Pneumonia PA and lateral views of the chest: Comparison: 09/04/2021 Findings: The lungs are clear, without evidence of focal consolidation or pleural effusion. Cardiome diastinal silhouette is within normal limits. Bones and soft tissues are unremarkable. Impression: Normal chest. Reviewed, dictated and finalized at [facility]. BASE REPORT WRITER Impression: Normal chest.
[2023-05-14 12:33] LABS: Influenza A QL RT-PCR Positive (Negative); Influenza B QL RT-PCR Negative (Negative); RSV RNA, RT-PCR Negative (Negative); SARS-CoV-2 RNA PCR Negative (Negative)
== END 2023-05-14 11:45 | disposition home or self-care (01) ==
LOC: CHSLAB 11:45
PROVIDERS: PCP Family Medicine; Visit Provider Nurse Practitioner Family
DX: J06.9 Acute upper respiratory infection, unspecified (principal); R09.89 Other specified symptoms and signs involving the circulatory and respiratory systems
CPT/HCPCS: 71046; 87637

== ENCOUNTER 2023-06-05 08:54 | Outpatient (CLI) | payer OTHER, SELFPAY ==
[2023-06-05 09:13] LABS: Basophils Absolute Auto 0.02 K/mm3 (0.00-0.10); Basophils Percent Auto 0.3 % (0.0-1.0); Eosinophils Absolute Auto 0.24 K/mm3 (0.02-0.50); Eosinophils Percent Auto 3.6 % (1.0-6.0); Immature Granulocyte Absolute 0.04 K/mm3 (0.00-0.00); Immature Granulocyte Percent A 0.6 % (0.0-0.0); Lymphocytes Percent Auto 25.3 % (18.0-42.0); Mean Corpuscular HGB Conc 33.3 g/dL (32.0-36.0); Mean Corpuscular Hemoglobin 29.3 pg (27.0-31.0); Mean Corpuscular Volume 87.8 fL (78.0-102.0); Monocytes Absolute Auto 0.63 K/mm3 (0.10-0.90); Monocytes Percent Auto 9.4 % (2.0-11.0); Neutrophils Absolute Auto 4.1 K/mm3 (1.7-7.2); Neutrophils Percent Auto 60.8 % (50.0-70.0); Platelet Count Result 167 K/mm3 (150-420); Red Cell Distribution Width 14.9 % (11.6-14.4); White Blood Count 6.7 K/mm3 (4.8-10.8)
[2023-06-05 09:24] LABS: Hemoglobin A1C 5.6 % (<5.7)
[2023-06-05 09:59] LABS: Alanine Aminotransferase 43 U/L (16-63); Albumin Level 3.5 g/dL (3.4-5.0); Alkaline Phosphatase 93 U/L (46-116); Anion Gap 9 mmol/L (8-16); Aspartate Amino Transferase 17 U/L (15-37); Bilirubin,Total 0.4 mg/dL (0.00-1.00); Blood Urea Nitrogen 25 mg/dL (7-18); Calcium 8.8 mg/dL (8.5-10.1); Carbon Dioxide 29 mmol/L (21-32); Chloride 103 mmol/L (98-108); Cholesterol 193 mg/dL (0-200); Estimated Glomerular Filt Rate > 60; Glucose 102 mg/dL (70-99); HDL Direct 63 mg/dL (40-60); LDL Cholesterol Calculated 115 mg/dL (<130); Osmolality Calculated 296 mOsm/kg (285-295); Potassium 4.2 mmol/L (3.5-5.1); Sodium 141 mmol/L (136-145); Total Protein 6.2 g/dL (6.4-8.2); Triglycerides 76 mg/dL (0-150)
== END 2023-06-05 08:55 | disposition home or self-care (01) ==
LOC: CHSLAB 08:55
PROVIDERS: PCP Family Medicine; Visit Provider Family Medicine
DX: E11.9 Type 2 diabetes mellitus without complications (principal); G47.33 Obstructive sleep apnea (adult) (pediatric); I25.10 Atherosclerotic heart disease of native coronary artery without angina pectoris
CPT/HCPCS: 36415; 80053; 80061; 83036; 84550; 85025

== ENCOUNTER 2023-06-08 08:55 | Outpatient (CLI) | payer OTHER, SELFPAY ==
--- NOTE | 2023-06-08 17:59 | P.PCNPFT_ITS ---
PFT Procedure Performed PFT Procedure Performed Spirometry with Pre/Post Bronchodilator Plethysmography (Lung Vol) Diffusing Cap (DLCO) Flow Vol Loop PFT Interpretation DOS: 06/08/2023 REQUESTING: Dr Durand REASON FOR TESTING: chronic cough PULMONARY FUNCTION TESTS Results are reliable and reproducible. Spirometry: Pre-bronchodilator FEV1 is 2.92 L, 104% predicted, normal. Pre- bronchodilator FVC is 4.72 L, 130% predicted, supranormal, not decreased. The FEV1/ FVC ratio is 62%, decreased consistent with airflow obstruction. after bronchodilator administration there is a 2% drop in FEV1 and 2% drop in FVC, not statistically significant. The FEV1 / FVC ratio remained 62% after bronchod ilator administration Lung volumes: The total lung capacity is 7.47 L, 128% predicted, slightly increased, consistent with mild hyperinflation. Residual volume is 2.11 L, 92% predicted, normal. RV/TLC is 20% predicted, not increased. Airway resistance is 112%, normal. Diffusion: DLCO is 24, 110% predicted, normal. DLCO/VA is 3.69, 102% predicted, normal. Flow volume loop: The expiratory limb shows some flattening IMPRESSION: This study on 06/08/2023 shows mild airflow obstruction with decreased FEV1/FVC ratio with normal FEV1 and FVC, no response to bronchodilator, mild hyperinflation, and normal diffusion. Compared to a prior study 10/18/2020, his current FEV1/FVC ratio is lower, indicating new airflow obstruction. Previously, the ratio was 89% and now 62%. Total lung capacity is higher, now 128% previously 116%, indicating new hyperinflation. Diffusion is normal. Lack of response to bronchodilator should not preclude use if clinically indicated. Luiza Yarbrough MD
== END 2023-06-08 08:56 | disposition home or self-care (01) ==
LOC: CHSCARD 08:56
PROVIDERS: PCP Family Medicine; Visit Provider Family Medicine
DX: R05.3 Chronic cough (principal); R94.2 Abnormal results of pulmonary function studies
CPT/HCPCS: 94060; 94726; 94729

== ENCOUNTER 2023-10-21 08:36 | Outpatient (CLI) | payer OTHER, SELFPAY ==
[2023-10-21 09:41] LABS: Cholesterol 176 mg/dL (0-200); HDL Direct 52 mg/dL (40-60); LDL Cholesterol Calculated 101 mg/dL (<130); Triglycerides 115 mg/dL (0-150); Uric Acid 4.3 mg/dL (3.5-7.2)
== END 2023-10-21 08:37 | disposition home or self-care (01) ==
PROVIDERS: PCP Family Medicine; Visit Provider Family Medicine
DX: E11.9 Type 2 diabetes mellitus without complications (principal)
CPT/HCPCS: 36415; 80061; 84550

== ENCOUNTER 2023-12-31 09:21 | Outpatient (CLI) | payer OTHER, SELFPAY ==
[2023-12-31 09:36] LABS: Basophils Absolute Auto 0.03 K/mm3 (0.00-0.10); Basophils Percent Auto 0.6 % (0.0-1.0); Eosinophils Absolute Auto 0.38 K/mm3 (0.02-0.50); Eosinophils Percent Auto 7.6 % (1.0-6.0); Hematocrit 37.6 % (37.0-46.0); Hemoglobin 12.9 g/dL (12.4-15.3); Immature Granulocyte Absolute 0.02 K/mm3 (0.00-0.00); Immature Granulocyte Percent A 0.4 % (0.0-0.0); Lymphocytes Absolute Auto 1.18 K/mm3 (1.10-4.50); Lymphocytes Percent Auto 23.7 % (18.0-42.0); Mean Corpuscular HGB Conc 34.3 g/dL (32-36); Mean Corpuscular Hemoglobin 30.1 pg (27.0-31.0); Mean Corpuscular Volume 87.9 fL (78.0-102.0); Mean Platelet Volume 9.7 fl (8.7-11.0); Monocytes Absolute Auto 0.41 K/mm3 (0.10-0.90); Monocytes Percent Auto 8.2 % (2.0-11.0); Neutrophils Absolute Auto 2.96 K/mm3 (1.70-7.20); Neutrophils Percent Auto 59.5 % (50.0-70.0); Platelet Count Result 177 K/mm3 (150-420); Red Blood Count 4.28 M/mm3 (4.70-6.10); Red Cell Distribution Width 14.1 % (11.6-14.4)
[2023-12-31 09:44] LABS: Creatinine Urine 24.61 mg/dL (40-278); MALB Creatinine Ratio 52.8 mg/g (0-30); Microalbumin Urine Random < 13.0 mg/L
[2023-12-31 09:48] LABS: Hemoglobin A1C 5.1 % (<5.7)
[2023-12-31 10:33] LABS: Alanine Aminotransferase 31 U/L (16-63); Albumin Level 3.7 g/dL (3.4-5.0); Alkaline Phosphatase 109 U/L (46-116); Anion Gap 8 mmol/L (4-12); Aspartate Amino Transferase 22 U/L (15-37); Bilirubin,Total 0.5 mg/dL (0.00-1.00); Blood Urea Nitrogen 16 mg/dL (7-18); Calcium 9.2 mg/dL (8.5-10.1); Carbon Dioxide 29 mmol/L (21-32); Chloride 103 mmol/L (98-108); Cholesterol 316 mg/dL (0-200); Estimated Glomerular Filt Rate > 60; Glucose 97 mg/dL (70-99); HDL Direct 42 mg/dL (40-60); LDL Cholesterol Calculated 220 mg/dL (<130); Osmolality Calculated 291 mOsm/kg (285-295); Potassium 3.6 mmol/L (3.5-5.1); Sodium 140 mmol/L (136-145); Total Protein 6.4 g/dL (6.4-8.2); Triglycerides 272 mg/dL (0-150)
[2023-12-31 10:34] LABS: Uric Acid 5.1 mg/dL (3.5-7.2)
== END 2023-12-31 09:22 | disposition home or self-care (01) ==
LOC: CHSLAB 09:23
PROVIDERS: PCP Family Medicine; Visit Provider Family Medicine
DX: M10.9 Gout, unspecified (principal); E11.9 Type 2 diabetes mellitus without complications; I10 Essential (primary) hypertension
CPT/HCPCS: 36415; 80053; 80061; 82043; 83036; 84550; 85025

== ENCOUNTER 2024-01-09 08:19 | Outpatient (CLI) | payer OTHER, SELFPAY ==
--- NOTE | ~2024-01-09 | MR_ITS ---
CORRECTED REPORT Corrected exam description [facility] 01/11/24 This report was recreated on 01/11/24. Original report was MR brain/brain stem wo con Ordering provider: Parvez Durand DO History: 68 years Male with . Headache x2 weeks, NKI . Comparison: September 14, 2021 Technique: MRI brain was performed without contrast. FINDINGS: BONES: Normal. CRANIOCERVICAL JUNCTION: normal. PITUITARY: Normal. MAJOR INTRACRANIAL VESSELS: Normal flow void. Dominant left vertebral artery. OPTIC NERVES AND CRANIAL NERVES VII AND VIII COMPLEXES: Grossly normal. BRAIN PARENCHYMA AND CSF SPACES: Severe scattered nonspecific T2 white matter hyperintensities are seen which are likely related to chronic ischemic small vessel disease. Mild diffuse cortical atrophy. The brainstem and cerebellum are normal. No acute or chronic intracranial hemorrhage. No extra axial fluid collections. Diffusion weighted and ADC mapping images reveal no recent ischemia. No midline shift or mass effect. PARANASAL SINUSES: Bilateral ethmoid sinus disease. MASTOIDS: Normal SUPERFICIAL/SURROUNDING SOFT TISSUES: Normal. IMPRESSION: 1. No acute intracranial process. Reviewed, dictated and finalized at location A. MTDD
== END 2024-01-09 08:20 | disposition home or self-care (01) ==
LOC: CHSIMG 08:20
PROVIDERS: PCP Family Medicine; Visit Provider Family Medicine
DX: R51.9 Headache, unspecified (principal)
CPT/HCPCS: 70551

== ENCOUNTER 2024-06-01 07:50 | Outpatient (CLI) | payer OTHER, SELFPAY ==
--- OUTSIDE RECORDS SUMMARY | 2024-06-01 07:54 | XMS_ITS | Clinical Summary ---
Author Organization [facility] Address [address] [place] [address] Care Team Providers Care Project Portfolio Analyst Name Role Phone Yohannes Tidwell MD Primary Care Provider [phone] Medications amitriptyline 100 MG tablet Take 100 mg by mouth nightly at bedtime. Active clopidogrel 75 MG tablet Take 75 mg by mouth daily. Active escitalopram 10 MG tablet Take 10 mg by mouth daily. Active isosorbide dinitrate 20 MG tablet Take 20 mg by mouth daily. Active lisinopril 20 MG TABS 20 mg, hydrochlorothiazide 25 MG TABS 25 mg Take 2 tablets by mouth daily. Active metoprolol tartrate 50 MG tablet Take 50 mg by mouth 2 (two) times daily. Active omeprazole 40 MG capsule Take 40 mg by mouth daily. Active phenytoin ER 100 MG capsule Take 300 mg by mouth nightly at bedtime. Active rosuvastatin 20 MG tablet Take 20 mg by mouth daily. Active Active Problems Problem Noted Date Diagnosed Date Seizure disorder ([facility]/HCC) 03/24/2018 Respiratory failure ([facility]) 03/23/2018 Encephalopathy 03/22/2018 Social History Tobacco Use Types Packs/Day Years Used Date Smoking Tobacco: Never Sex and Gender Information Value Date Recorded Sex Assigned at Not on file Legal Sex Male 9:45 PM CDT Gender Identity Not on file Sexual Orientation Not on file Last Filed Vital Signs Vital Sign Reading Time Taken Comments Blood Pressure 176/85 03/25/2018 5:00 AM BOOTH SUPERVISOR Pulse 85 03/25/2018 5:00 AM BOOTH SUPERVISOR Temperature 37.1 C (98.8 F) 03/25/2018 5:00 AM BOOTH SUPERVISOR Respiratory Rate 18 03/25/2018 5:00 AM BOOTH SUPERVISOR Oxygen Saturation 99% 03/25/2018 5:00 AM BOOTH SUPERVISOR Inhaled Oxygen Concentration - - Weight 114.5 kg (252 lb 6.8 oz) 03/22/2018 3:33 PM BOOTH SUPERVISOR Height 182.9 cm (6') 03/22/2018 3:33 PM BOOTH SUPERVISOR Body Mass Index 34.24 03/22/2018 3:33 PM BOOTH SUPERVISOR Plan of Treatment Health Maintenance Due Date Last Done Comments Colorectal Cancer Screening Colonoscopy (10 Years) 1955 Hepatitis C 1973 DTaP, Tdap and Td Vaccines ( 1 - Tdap) 1974 Zoster Vaccines (1 of 2) 2005 Annual Medicare Wellness Visit 2020 Pneumococcal Vaccine: 65+ Ye ars (1 of 1 - PCV) 2020 COVID-19 Vaccine ( - 2023-2 5 season) 2023 Influenza Adult (#1) 2024 RSV Immunization or 60+ Years (1 - 1-dose 75+ series) 2030 Meningococcal B Vaccine Aged Out No l onger eligible based on patient's age to complete this topic Meningococcal Vaccine Aged Out No jairo ayaka eligible based on patient's age to complete this topic RSV Immunizations Under 20 Months Aged Out No longer eligible based on patient's age to complete this topic Additional Health Concerns Infection Onset Date 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 04/28/2018 Insurance MEDICARE Advance Directives Documents on File Type Date Recorded Patient Electronic Controls Repairer Supervisor Expl anation Advance Directives and Living Will 03/23/2018 9:47 AM POA FOR HEALTHCARE 05/13/2016 Advance Directives and Living Will 05/12/2016 SHORT FORM POWER OF SHELL MAKER LOCKSTITCH * Full Code (Latest Code Status on File) Date Activated Date Inactivated Comments 03/22/2018 2:56 PM 03/25/2018 3:03 PM Care Teams Project Portfolio Analyst Relationship Specialty Start Date End Date Yohannes Tidwell MD [address] [place] [address] PCP - General FAMILY PRACTICE 03/25/18
[2024-06-01 09:12] LABS: Alanine Aminotransferase 30 U/L (16-63); Alkaline Phosphatase 108 U/L (46-116); Anion Gap 8 mmol/L (4-12); Aspartate Amino Transferase 17 U/L (15-37); Bilirubin,Total 0.6 mg/dL (0.00-1.00); Blood Urea Nitrogen 17 mg/dL (7-18); Calcium 9.2 mg/dL (8.5-10.1); Carbon Dioxide 28 mmol/L (21-32); Chloride 107 mmol/L (98-108); Cholesterol 230 mg/dL (0-200); Estimated Glomerular Filt Rate > 60; Glucose 89 mg/dL (70-99); HDL Direct 54 mg/dL (40-60); LDL Cholesterol Calculated 158 mg/dL (<130); Osmolality Calculated 296 mOsm/kg (285-295); Sodium 143 mmol/L (136-145); Total Protein 6.4 g/dL (6.4-8.2); Triglycerides 88 mg/dL (0-150)
== END 2024-06-01 07:51 | disposition home or self-care (01) ==
LOC: CHSLAB 07:51
PROVIDERS: PCP Family Medicine; Visit Provider Internal Medicine Cardiovascular Disease
DX: E78.00 Pure hypercholesterolemia, unspecified (principal); E11.9 Type 2 diabetes mellitus without complications
CPT/HCPCS: 36415; 80053; 80061

== ENCOUNTER 2024-08-31 12:18 | Outpatient (CLI) | payer OTHER, SELFPAY ==
--- NOTE | ~2024-08-31 | XR_ITS ---
Left Hand Technique: PA, oblique, and lateral views were obtained. Clinical History: Thumb pain Findings: No acute fracture or dislocation is seen. Osseous alignment is anatomic. There is minimal d egenerative change of the first CMC joint. Soft tissues are unremarkable. Impression: Minimal degenerative change of the first CMC joint. Reviewed, dictated and finalized at location . Impression: Minimal degenerative change of the first CMC joint.
== END 2024-08-31 12:19 | disposition home or self-care (01) ==
LOC: CHSIMG 12:19
PROVIDERS: PCP Family Medicine; Visit Provider Family Medicine
DX: M79.642 Pain in left hand (principal)
CPT/HCPCS: 73130

== ENCOUNTER 2024-09-08 15:36 | Emergency (ER) | payer OTHER, SELFPAY ==
--- NOTE | ~2024-09-08 | XR_ITS ---
XR hip RT min 3V w AP pelvis Ordering provider: Phillip Baker MD History: . hip pain, chronic . Comparison: None. FINDINGS: BONES: No acute fracture or dislocation. HIP JOINT SPACES: Bilateral mild to moderate osteoarthritic changes. SACROILIAC JOINT SPACES/LUMBAR SPINE: The sacroiliac joint spaces are normal. Mild degenerative conte es of the visualized lower lumbar spine. PUBIC SYMPHYSIS: Normal. SOFT TISSUES: Normal. IMPRESSION: No acute osseous abnormality pelvis and right hip. Reviewed, dictated and finalized at location A.
[2024-09-08 15:37] VITALS: BP 190/81; PULSE 73; RESP 18; TEMP 36.5; O2SAT 98
[2024-09-08] MEDS: KETOROLAC 30 MG/ML VIAL (*BKC) IM (16:08)
--- NOTE | 2024-09-08 16:36 | ED.BACK ---
HPI - Back Pain/Injury General Chief Complaint: Back Pain/Injury Stated Complaint: side/back/hip pain Time Seen by Provider: 09/08/24 15:38 Source: patient Mode of arrival: ambulatory Limitations: no limitations History of Present Illness HPI Narrative: this is a 69-year-old male with a history of low back pain and sciatica presents with right lower back pain radiating to his right hip with no fever chills no saddle paresthesias no nausea vomiting no abdominal pain no dysuria no hematuria. MD elicited complaint: back pain Pertinent past history: prior back pain Onset (ago): day(s) Timing: constant Severity: moderate Pain scale (0-10): 7 Quality: aching, tingling and spasming Location: lumbar spine and right lower back Radiation: right upper leg Exacerbating factors: movement Relieving factors: immobilization Context: turning/twisting and bending Related Data Allergies Allergy/AdvReac Type Severity Reaction Status Date / Time baclofen Allergy Intermediate Anaphylaxis Verified 08/31/24 12:02 Review of Systems Review of Systems: All systems reviewed & are unremarkable except as noted in HPI and below PMFSH Past Medical History Medical History Bilateral hip joint arthritis Effects of heat cramp Dizziness and giddiness Dysequilibrium DM2 (diabetes mellitus, type 2) COELHO (dyspnea on exertion) Chronic kidney disease (CKD) Syncope and collapse CVA (cerebral vascular accident) x'2, last in 2017. 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 Gender identity (if verbalized by the patient): Male Spiritual care concerns: No Exam Const: General: healthy appearing and no acute distress Nutritional Appearance: well nourished Orientation/consciousness: patient oriented x3 Limitations: no limitations Chest: Chest palpation & inspection: normal inspection of the chest Resp: Effort & Inspection: normal respiratory effort Auscultation: clear to auscultation bilaterally Cardio: Rate: regular rate Rhythm: regular rhythm GI: Auscultation: normal bowel sounds : General: Yes bladder normal to palpation Back/Spine/Pelvis: Back: no CVA tenderness Skin: General skin exam: normal color Rashes: no rashes Neuro: General: patient oriented x3, moves all extremities, no meningeal signs and no focal motor deficits Extrem: Other: Right hip pain with movement palpation and right lower back pain L4 paravertebral tenderness with palpation on the right Course Course Emergency Course: patient received 30mg IM Toradol and x-ray performed shows no acute abnormalities no osteoarthritis of his relies. Vital Signs Vital signs: Vital Signs Temperature 36.5 C 09/08/24 15:37 Pulse Rate 73 09/08/24 15:37 Respiratory Rate 18 09/08/24 15:37 Blood Pressure 190/81 H 09/08/24 15:37 Pulse Oximetry 98 09/08/24 15:37 Oxygen Delivery Room Air 09/08/24 15:37 Temperature 36.5 C 09/08/24 15:37 Pulse Rate 73 09/08/24 15:37 Respiratory Rate 18 09/08/24 15:37 Blood Pressure 190/81 H 09/08/24 15:37 Pulse Oximetry 98 09/08/24 15:37 Oxygen Delivery Room Air 09/08/24 15:37 Critical Care Time Critical Care Time Critical Care Time: No Discharge Plan Discharge Clinical Impression: Sciatica of right side Patient Disposition: Home Condition: Stable Instructions: Antibiotic Form, Sciatica (ED) Additional Instructions: advised patient to take medication as prescribed and follow-up primary care physician within the next 3 to 5 days for further evaluation and treatment. Patient Language: Malagasy Prescriptions: New tramadol 50 mg tablet 50 mg PO Q6H PRN (Reason: pain) Qty: 20 0RF No Action sildenafil 100 mg tablet See Rx Instructions .ROUTE .COMPLEX Qty: 300 0RF Dose Instruction: TAKE ONE TABLET BY MOUTH DAILY NEEDED FOR SEXUAL ACTIVITY; ADMINISTER 30 MINUTES TO 4 HOURS BEFORE ACTIVITY Rx Instructions: TAKE ONE TABLET BY MOUTH DAILY NEEDED FOR SEXUAL ACTIVITY; ADMINISTER 30 MINUTES TO 4 HOURS BEFORE ACTIVITY simvastatin 40 mg tablet 40 mg PO DAILY Qty: 90 0RF mupirocin 2 % ointment 1 applic topical BID Qty: 22 0RF albuterol sulfate 90 mcg/actuation HFA aerosol inhaler See Rx Instructions .ROUTE .COMPLEX Qty: 8.5 0RF Dose Instruction: INHALE 1 INHALATION EVERY 4 HOURS Rx Instructions: INHALE 1 INHALATION EVERY 4 HOURS omeprazole 40 mg capsule,delayed release(DR/EC) See Rx Instructions .ROUTE .COMPLEX Qty: 90 3RF Dose Instruction: TAKE 1 CAPSULE BY MOUTH DAILY Rx Instructions: TAKE 1 CAPSULE BY MOUTH DAILY allopurinol 300 mg tablet See Rx Instructions .ROUTE .COMPLEX Qty: 90 3RF Dose Instruction: TAKE ONE TABLET BY MOUTH DAILY Rx Instructions: TAKE ONE TABLET BY MOUTH DAILY colchicine 0.6 mg tablet See Rx Instructions .ROUTE .COMPLEX Qty: 180 3RF Dose Instruction: TAKE ONE TABLET BY MOUTH TWICE A DAY DIRECTED Rx Instructions: TAKE ONE TABLET BY MOUTH TWICE A DAY DIRECTED lisinopril 10 mg tablet See Rx Instructions .ROUTE .COMPLEX Qty: 90 0RF Dose Instruction: TAKE ONE TABLET BY MOUTH EVERY DAY Rx Instructions: TAKE ONE TABLET BY MOUTH EVERY DAY furosemide 40 mg tablet See Rx Instructions .ROUTE .COMPLEX Qty: 180 0RF Dose Instruction: TAKE 2 TABLETS BY MOUTH EVERY MORNING Rx Instructions: TAKE 2 TABLETS BY MOUTH EVERY MORNING icosapent ethyl [Vascepa] 1 gram capsule See Rx Instructions .ROUTE .COMPLEX Qty: 360 0RF Dose Instruction: TAKE 2 CAPSULES BY MOUTH TWICE A DAY Rx Instructions: TAKE 2 CAPSULES BY MOUTH TWICE A DAY Breztri Aerosphere 160-9-4.8 mcg/actuation HFA aerosol inhaler See Rx Instructions .ROUTE .COMPLEX Qty: 10.7 2RF Dose Instruction: 2 INHALATIONS INHALED TWICE A DAY Rx Instructions: 2 INHALATIONS INHALED TWICE A DAY Mounjaro 10 mg/0.5 mL pen injector 10 mg subcut WEEKLY Qty: 2 3RF oxycodone 5 mg tablet 5 mg PO Q8H PRN (Reason: pain) Qty: 20 0RF Follow-up/Referrals: Parvez Durand DO [Primary Care Provider] - Time of Disposition: 16:41
[2024-09-08 16:49] VITALS: BP 202/93; PULSE 81; RESP 18; TEMP 36.8; O2SAT 97
[2024-09-08] MEDS: cloNIDine HCL 0.1 MG TABLET PO (16:51)
[2024-09-08 17:20] VITALS: BP 189/82; PULSE 71; PULSE 80; RESP 18; TEMP 36.9; O2SAT 99
== END 2024-09-08 17:22 | disposition home or self-care (01) ==
PROVIDERS: Emergency Provider Emergency Medicine; PCP Family Medicine
DX: M54.31 Sciatica, right side (principal); E11.22 Type 2 diabetes mellitus with diabetic chronic kidney disease; I12.9 Hypertensive chronic kidney disease with stage 1 through stage 4 chronic kidney disease, or unspecified chronic kidney disease; N18.9 Chronic kidney disease, unspecified; I25.10 Atherosclerotic heart disease of native coronary artery without angina pectoris; Z87.891 Personal history of nicotine dependence
CPT/HCPCS: 73502; 96372; 99283; A9270; J1885

== ENCOUNTER 2024-09-23 14:23 | Outpatient (CLI) | payer OTHER, SELFPAY ==
--- NOTE | ~2024-09-23 | XR_ITS ---
EXAMINATION: XR chest 2V 09/23/2024 14:33 INDICATION: Cough and congestion. Wheezing and shortness of breath. PROCEDURE: 2 view chest COMPARISON: Comparison to multiple prior studies sequentially, with oldest reviewed study dated 11/2017. FINDINGS: The lungs are clear. The cardiomediastinal silhouette is within normal limits. There are no pleural effusions. There is no pneumothorax suspected. There is a coronary artery stent. IMPRESSION: 1: NO ACUTE CARDIOPULMONARY DISEASE. Reviewed, dictated and finalized at location B.
== END 2024-09-23 14:24 | disposition home or self-care (01) ==
LOC: CHSLAB 14:24 → CHSIMG 14:25
PROVIDERS: PCP Family Medicine; Visit Provider Family Medicine
DX: J18.9 Pneumonia, unspecified organism (principal)
CPT/HCPCS: 71046

== ENCOUNTER 2024-10-20 08:32 | Outpatient (CLI) | payer OTHER, SELFPAY ==
--- NOTE | ~2024-10-20 | MR_ITS ---
MRI of the lumbar spine Clinical History: Radiculopathy Technique: Axial T2-weighted images, and sagittal T1-weighted, T2-weighted, and T2 fat-sat images wer e acquired. Findings: There is no fracture or subluxation of the lumbar spine. Vertebral bodies maintain normal h eight and alignment. No bone marrow signal abnormality seen. At L1-L2, there is no disc bulge or herniation. There is mild facet arthropathy. No central canal maximilian nosis or neural foraminal narrowing. At L2-L3, there is mild degenerative disc narrowing. There is mild disc bulge with moderate facet art hropathy. No central canal stenosis or neural foraminal narrowing. At L3-L4, there is mild degenerative disc narrowing. There is disc bulge with severe facet arthropath y. There is severe spinal canal stenosis/thecal sac compression. There is probable minimal bilateral neural foraminal narrowing. At L4-L5, there is diffuse disc bulge with severe facet arthropathy. There is severe spinal canal maximilian nosis/thecal sac compression. There is moderate to severe bilateral neural foraminal narrowing. At L5-S1, there is degenerative disc narrowing with diffuse disc bulge and severe facet arthropathy. There is moderate central canal stenosis. There is severe bilateral neural foraminal narrowing. Paravertebral soft tissues are unremarkable. Impression: Severe degenerative spondylosis, especially at L3-L4, L4-L5 and L5-S1, as detailed above. Reviewed, dictated and finalized at [facility]. Impression: Severe degenerative spondylosis, especially at L3-L4, L4-L5 and L5-S1, as detai led above.
--- OUTSIDE RECORDS SUMMARY | 2024-10-20 08:35 | XMS_ITS | Patient Health Record ---
Author Organization [facility] Address [address] [place], [place] [id number] Care Team Providers Care Plant Taxonomy Teacher Name Role Phone RuthmarcoWILVER laraILY Unavailable [phone] Parvez Durand Unavailable Unavailable Reason For Referral No Information Plan Of Treatment No Information Insurance Providers Payer Name Payer Address Payer Phone Subscriber Number Group Number Insured Name Patient Relationship to Insured Coverage Start Date Coverage End Date Medicare Part B [place] [address] [place] [phone] [id number] SANGITA HUTCHINS Self - patient is the insured
--- OUTSIDE RECORDS SUMMARY | 2024-10-20 08:35 | XMS_ITS | Clinical Summary ---
Author Organization [facility] Address [address] [place] [address] Care Team Providers Care Supervisor Bakery Sanitation Name Role Phone Yohannes Tidwell MD Primary Care Provider [phone] Medications amitriptyline 100 MG tablet Take 100 [...] Problem Noted Date Diagnosed Date Seizure disorder ([facility]/HCC) 03/24/2018 Respiratory failure ([facility]) 03/23/2018 Encephalopathy 03/22/2018 Social History Tobacco Use Types Packs/Day Years Used Date Smoking Tobacco: Never Sex and Gender Information Value Date Recorded Sex Assigned at Not on file Legal Sex Male 9:45 PM CDT Gender Identity Not on file Sexual Orientation Not on file Last Filed Vital Signs Vital Sign Reading Time Taken Comments Blood Pressure 176/85 03/25/2018 5:00 AM LINUX UNIX SYSTEM ADMINISTRATOR Pulse 85 03/25/2018 5:00 AM LINUX UNIX SYSTEM ADMINISTRATOR Temperature 37.1 C (98.8 F) 03/25/2018 5:00 AM LINUX UNIX SYSTEM ADMINISTRATOR Respiratory Rate 18 03/25/2018 5:00 AM LINUX UNIX SYSTEM ADMINISTRATOR Oxygen Saturation 99% 03/25/2018 5:00 AM LINUX UNIX SYSTEM ADMINISTRATOR Inhaled Oxygen Concentration - - Weight 114.5 kg (252 lb 6.8 oz) 03/22/2018 3:33 PM LINUX UNIX SYSTEM ADMINISTRATOR Height 182.9 cm (6') 03/22/2018 3:33 PM LINUX UNIX SYSTEM ADMINISTRATOR Body Mass Index 34.24 03/22/2018 3:33 PM LINUX UNIX SYSTEM ADMINISTRATOR Plan of Treatment Health Maintenance Due Date Last Done Comments Colorectal Cancer Screening Colonoscopy (10 Years) 1955 Hepatitis C 1973 DTaP, Tdap and Td Vaccines ( 1 - Tdap) 1974 Pneumococcal Vaccine: 50+ Ye ars (1 of 1 - PCV) 2005 Zoster Vaccines (1 of 2) 2005 Annual Medicare Wellness Visit 2020 COVID-19 Vaccine ( - 2023-2 5 season) 2023 RSV Immunization or 60+ Years (1 - [...] Documents on File Type Date Recorded Patient Applications Scientist Expl anation Advance Directives and Living Will 03/23/2018 9:47 AM POA FOR HEALTHCARE 05/13/2016 Advance Directives and Living Will 05/12/2016 SHORT FORM POWER OF MECHANICAL DESIGN ENGINEER FACILITIES * Full Code (Latest Code Status on File) Date Activated Date Inactivated Comments 03/22/2018 2:56 PM 03/25/2018 3:03 PM Care Teams Supervisor Bakery Sanitation Relationship Specialty Start Date End Date Yohannes Tidwell MD [address] [place] [address] PCP - General FAMILY PRACTICE 03/25/18
== END 2024-10-20 08:33 | disposition home or self-care (01) ==
LOC: CHSIMG 08:33
PROVIDERS: PCP Family Medicine; Visit Provider Family Medicine
DX: M54.16 Radiculopathy, lumbar region (principal); M43.06 Spondylolysis, lumbar region
CPT/HCPCS: 72148

== ENCOUNTER 2024-12-23 09:41 | Outpatient (CLI) | payer OTHER, SELFPAY ==
--- NOTE | ~2024-12-23 | XR_ITS ---
EXAMINATION: XR chest 2V, 12/23/2024 9:44 CDT HISTORY: R05.9 - Cough, unspecified COMPARISON: No comparisons available. Technique: 2 views obtained. Findings: The lungs are clear, no effusion. No pneumothorax. Heart is normal size. Mediastinal and hilar contours are within normal limits. Bony thorax no acute abnormality. Impression: No acute cardiopulmonary abnormality. Reviewed, dictated and finalized at location [facility]. Impression: No acute cardiopulmonary abnormality.
--- OUTSIDE RECORDS SUMMARY | 2024-12-23 10:13 | XMS_ITS | Clinical Summary ---
Author Organization [facility] Address [address] [place] [address] Care Team Providers Care Organic Preparation Analyst Name Role Phone Yohannes Tidwell MD Primary Care Provider [phone] Medications amitriptyline 100 MG tablet Take 100 [...] Problem Noted Date Diagnosed Date Seizure disorder ([facility]HCC) 03/24/2018 Respiratory failure ([facility]) 03/23/2018 Encephalopathy 03/22/2018 Social History Tobacco Use Types Packs/Day Years Used Date Smoking Tobacco: Never Sex and Gender Information Value Date Recorded Sex Assigned at Not on file Legal Sex Male 9:45 PM CDT Gender Identity Not on file Sexual Orientation Not on file Last Filed Vital Signs Vital Sign Reading Time Taken Comments Blood Pressure 176/85 03/25/2018 5:00 AM PATIENT ACCESS ASSOCIATE Pulse 85 03/25/2018 5:00 AM PATIENT ACCESS ASSOCIATE Temperature 37.1 C (98.8 F) 03/25/2018 5:00 AM PATIENT ACCESS ASSOCIATE Respiratory Rate 18 03/25/2018 5:00 AM PATIENT ACCESS ASSOCIATE Oxygen Saturation 99% 03/25/2018 5:00 AM PATIENT ACCESS ASSOCIATE Inhaled Oxygen Concentration - - Weight 114.5 kg (252 lb 6.8 oz) 03/22/2018 3:33 PM PATIENT ACCESS ASSOCIATE Height 182.9 cm (6') 03/22/2018 3:33 PM PATIENT ACCESS ASSOCIATE Body Mass Index 34.24 03/22/2018 3:33 PM PATIENT ACCESS ASSOCIATE Plan of Treatment Health Maintenance Due Date Last Done Comments Colorectal Cancer Screening Colonoscopy (10 Years) 1955 Hepatitis C 1973 DTaP, Tdap and Td Vaccines ( 1 - Tdap) 1974 Pneumococcal Vaccine: 50+ Ye ars (1 of 1 - PCV) 2005 Zoster Vaccines (1 of 2) 2005 Annual Medicare Wellness Visit 2020 COVID-19 Vaccine (1 - 2023-2 5 season) 2024 RSV Immunization or 60+ Years (1 [...] Documents on File Type Date Recorded Patient Audit Consultant Expl anation Advance Directives and Living Will 03/23/2018 9:47 AM POA FOR HEALTHCARE 05/13/2016 Advance Directives and Living Will 05/12/2016 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
== END 2024-12-23 09:42 | disposition home or self-care (01) ==
PROVIDERS: PCP Family Medicine; Visit Provider Family Medicine
DX: R05.9 Cough, unspecified (principal)
CPT/HCPCS: 71046

== ENCOUNTER 2025-02-08 14:42 | Outpatient (CLI) | payer OTHER, SELFPAY ==
[2025-02-08 15:04] LABS: Hematocrit 38.5 % (37.0-46.0); Hemoglobin 13.1 g/dL (12.4-15.3); Immature Granulocyte Percent A 0.2 % (0.0-0.0); Lymphocytes Absolute Auto 1.01 K/mm3 (1.10-4.50); Mean Corpuscular HGB Conc 34.0 g/dL (32-36); Mean Corpuscular Hemoglobin 30.4 pg (27.0-31.0); Mean Corpuscular Volume 89.3 fL (78.0-102.0); Nucleated Red Blood Cells Absolute Auto 0.00 K/mm3 (0.00-0.00); Nucleated Red Blood Cells Perc 0.0 % (0-0.0); Platelet Count Result 182 K/mm3 (150-420); Red Blood Count 4.31 M/mm3 (4.70-6.10); White Blood Count 5.9 K/mm3 (4.8-10.8)
[2025-02-08 15:21] LABS: Hemoglobin A1C 5.0 % (<5.7)
[2025-02-08 15:28] LABS: Alanine Aminotransferase 18 U/L (6-50); Albumin Level 4.4 g/dL (3.5-5.1); Alkaline Phosphatase 87 U/L (38-126); Anion Gap 8 mmol/L (4-12); Aspartate Amino Transferase 26 U/L (17-59); Bilirubin,Total 0.6 mg/dL (0.2-1.3); Blood Urea Nitrogen 16 mg/dL (9-20); Calcium 10.0 mg/dL (8.4-10.2); Carbon Dioxide 27 mmol/L (22-30); Chloride 107 mmol/L (98-107); Cholesterol 253 mg/dL (0-200); Estimated Glomerular Filt Rate > 60; Glucose 93 mg/dL (65-110); HDL Direct 59 mg/dL; Osmolality Calculated 295 mOsm/kg (285-295); Potassium 3.9 mmol/L (3.4-5.0); Sodium 142 mmol/L (137-145); Total Protein 6.5 g/dL (6.3-8.2); Triglycerides 190 mg/dL (<150)
[2025-02-08 16:25] LABS: Vitamin B12 302.0 pg/mL (239-931)
--- OUTSIDE RECORDS SUMMARY | 2025-02-08 16:39 | XMS_ITS | Clinical Summary ---
Author Organization [facility] Address [address] [place] [address] Care Team Providers Care Rehabilitation Inspector Name Role Phone Yohannes Tidwell MD Primary Care Provider [phone] Medications amitriptyline 100 MG tablet Take 100 [...] Problem Noted Date Diagnosed Date Seizure disorder 03/24/2018 Respiratory failure 03/23/2018 Encephalopathy 03/22/2018 Social History Tobacco Use Types Packs/Day Years Used Date Smoking Tobacco: Never Sex and Gender Information Value Date Recorded Sex Assigned at Not on file Legal Sex Male 9:45 PM CDT Gender Identity Not on file Sexual Orientation Not on file Last Filed Vital Signs Vital Sign Reading Time Taken Comments Blood Pressure 176/85 03/25/2018 5:00 AM CERTIFIED ADAPTIVE PHYSICAL EDUCATOR Pulse 85 03/25/2018 5:00 AM CERTIFIED ADAPTIVE PHYSICAL EDUCATOR Temperature 37.1 C (98.8 F) 03/25/2018 5:00 AM CERTIFIED ADAPTIVE PHYSICAL EDUCATOR Respiratory Rate 18 03/25/2018 5:00 AM CERTIFIED ADAPTIVE PHYSICAL EDUCATOR Oxygen Saturation 99% 03/25/2018 5:00 AM CERTIFIED ADAPTIVE PHYSICAL EDUCATOR Inhaled Oxygen Concentration - - Weight 114.5 kg (252 lb 6.8 oz) 03/22/2018 3:33 PM CERTIFIED ADAPTIVE PHYSICAL EDUCATOR Height 182.9 cm (6') 03/22/2018 3:33 PM CERTIFIED ADAPTIVE PHYSICAL EDUCATOR Body Mass Index 34.24 03/22/2018 3:33 PM CERTIFIED ADAPTIVE PHYSICAL EDUCATOR Plan of Treatment Health Maintenance Due Date Last Done Comments Colorectal Cancer Screening Colonoscopy (10 Years) 1955 Hepatitis C 1973 DTaP, Tdap and Td Vaccines ( 1 - Tdap) 1974 Pneumococcal Vaccine: 50+ Ye ars (1 of 1 - PCV) 2005 Zoster Vaccines (1 of 2) 2005 Annual Medicare Wellness Visit 2020 COVID-19 Vaccine (1 - 2024-2 6 season) 2024 Influenza Adult (#1) 2025 RSV Immunization or 60+ Years (1 - 1-dose 75+ series) 2030 Hepatitis A Vaccines Aged Out No long er eligible based on patient's age to complete this topic Meningococcal B Vaccine Aged Out No l [...] Documents on File Type Date Recorded Patient Drill Sharpener Expl anation Advance Directives and Living Will 03/23/2018 9:47 AM POA FOR HEALTHCARE 05/13/2016 Advance Directives and Living Will 05/12/2016 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
[2025-02-08 17:22] LABS: Prostate Specific Antigen 2.3 ng/mL (< OR = 4.0)
== END 2025-02-08 14:43 | disposition home or self-care (01) ==
PROVIDERS: PCP Family Medicine; Visit Provider Nurse Practitioner Family
DX: E11.9 Type 2 diabetes mellitus without complications (principal); I12.9 Hypertensive chronic kidney disease with stage 1 through stage 4 chronic kidney disease, or unspecified chronic kidney disease; N18.9 Chronic kidney disease, unspecified; E53.8 Deficiency of other specified B group vitamins; E78.00 Pure hypercholesterolemia, unspecified; Z12.5 Encounter for screening for malignant neoplasm of prostate; Z13.6 Encounter for screening for cardiovascular disorders
CPT/HCPCS: 36415; 80053; 80061; 82607; 83036; 84153; 85025; G0103